=== PATIENT | male | born 1950 | race Caucasian/White ===

== ENCOUNTER → 2018-02-17 | Outpatient (CLI) | payer MEDICARE ==
[2018-02-17 09:36] LABS: ADD MAN DIFF? NO; BASO # 0.1 x10^3/uL (0.0-0.2); BASO % 1 % (0-3); EOS # 0.3 x10^3/uL (0.0-0.7); EOS % 3 % (0-3); HEMATOCRIT 48.8 % (39.0-53.0); HEMOGLOBIN 17.2 g/dL (13.0-17.5); LYMPH # 1.5 x10^3/uL (1.0-4.8); LYMPH % 16 % (24-48); MEAN CORPUSCULAR HEMOGLOBIN 33 pg (25-35); MEAN CORPUSCULAR HGB CONC 35 g/dL (31-37); MEAN CORPUSCULAR VOLUME 94 fL (79-100); MONO # 0.8 x10^3/uL (0.0-1.1); MONO % 9 % (0-9); NEUT # 6.8 x10^3uL (1.8-7.7); NEUT % 72 % (31-73); PLATELET COUNT 107 x10^3/uL (140-400); RED BLOOD COUNT 5.21 x10^6/uL (4.30-5.70); WHITE BLOOD COUNT 9.4 x10^3/uL (4.0-11.0)
[2018-02-17 09:43] LABS: ALBUMIN 4.1 g/dL (3.4-5.0); ANION GAP 6 (6-14); BLOOD UREA NITROGEN 13 mg/dL (8-26); CALCIUM 9.4 mg/dL (8.5-10.1); CARBON DIOXIDE 31 mmol/L (21-32); CHLORIDE 103 mmol/L (98-107); GLUCOSE 104 mg/dL (70-99); POTASSIUM 4.5 mmol/L (3.5-5.1); SODIUM 140 mmol/L (136-145)
[2018-02-17 09:47] LABS: PARTIAL THROMBOPLASTIN TIME 26 SEC (24-38); PROTHROMBIN TIME PATIENT 12.6 SEC (11.7-14.0)
== END | disposition home or self-care (01) ==
LOC: SURGPAT 08:59
DX: Z01.818 Encounter for other preprocedural examination (principal); K40.20 Bilateral inguinal hernia, without obstruction or gangrene, not specified as recurrent; R79.1 Abnormal coagulation profile
CPT/HCPCS: 36415; 80048; 82040; 85025; 85610; 85730

== ENCOUNTER 2018-02-21 06:34 | Day surgery (SDC) | payer MEDICARE ==
[2018-02-21] MEDS ORDERED: PROCHLORPERAZINE 10 MG/2 ML VIAL. IV (07:00)
[2018-02-21] MEDS ORDERED: ONDANSETRON PF 4 MG/2 ML VIAL. IV (07:00)
[2018-02-21] MEDS ORDERED: LIDOCAINE 1% PF 2 ML VIAL. ID (07:00)
[2018-02-21] MEDS ORDERED: fentaNYL PF VIAL 100 MCG/2 ML VIAL IV (07:00)
[2018-02-21] MEDS ORDERED: MORPHINE SULFATE 4 MG/ML DISP.SYRIN. IV (07:00)
[2018-02-21] MEDS: IV RINGERS,LACTATED 1000ML 1,000 ML IV (07:06)
[2018-02-21] MEDS ORDERED: ROCURONIUM 50 MG/5 ML VIAL. (07:45)
[2018-02-21] MEDS ORDERED: fentaNYL PF VIAL 100 MCG/2 ML VIAL ×2 (07:46→08:15)
[2018-02-21] MEDS ORDERED: DEXAMETHASONE SOD PHOS 20 MG/5 ML VIAL. (08:13)
[2018-02-21] MEDS ORDERED: LIDOCAINE 2% PF Vial for OR 5 ML VIAL. (08:13)
[2018-02-21] MEDS ORDERED: PROPOFOL 20 ML IV (08:13)
[2018-02-21] MEDS ORDERED: ONDANSETRON PF 4 MG/2 ML VIAL. (08:14)
[2018-02-21] MEDS: BUPIVACAINE-EPI 0.25%-1:200000 50 ML VIAL. (08:28)
[2018-02-21] MEDS ORDERED: NEOSTIGMINE METHYLSULFATE 5 MG/5 ML SYRINGE. (08:42)
[2018-02-21] MEDS ORDERED: GLYCOPYRROLATE 1 MG/5 ML VIAL. (08:42)
[2018-02-21] MEDS: fentaNYL PF VIAL 100 MCG/2 ML VIAL IV ×2 (10:15→10:24)
[2018-02-21] MEDS: HYDROcodone/APAP 5/325MG 1 TAB TABLET PO (10:25)
== END 2018-02-21 11:31 | disposition home or self-care (01) ==
LOC: SURG 06:34
DX: K40.20 Bilateral inguinal hernia, without obstruction or gangrene, not specified as recurrent (principal); C44.629 Squamous cell carcinoma of skin of left upper limb, including shoulder; Z79.899 Other long term (current) drug therapy; Z87.19 Personal history of other diseases of the digestive system; Z98.890 Other specified postprocedural states; Z90.49 Acquired absence of other specified parts of digestive tract; Z83.3 Family history of diabetes mellitus; F17.210 Nicotine dependence, cigarettes, uncomplicated; Z88.8 Allergy status to other drugs, medicaments and biological substances; E78.00 Pure hypercholesterolemia, unspecified; J44.9 Chronic obstructive pulmonary disease, unspecified; Z86.010 Personal history of colon polyps; E66.9 Obesity, unspecified; Z68.29 Body mass index [BMI] 29.0-29.9, adult; K21.9 Gastro-esophageal reflux disease without esophagitis; Z96.651 Presence of right artificial knee joint; Z72.89 Other problems related to lifestyle; Z85.828 Personal history of other malignant neoplasm of skin
CPT/HCPCS: 11601; 88304; 88305; A7015; C1781; J0690; J1100; J2405; J2704; J2710; J3010; J3490; J7120

== ENCOUNTER → 2018-11-15 | Outpatient (CLI) | payer MEDICARE ==
[2018-02-21 11:20] VITALS: BP 157/89
[~2018-11-15] MED LIST: CONTRAST GIVEN. MC PRN; HYDR-2761 PO; HYDR-2769 PO; IOHEXOL 240 MG/ML 50ML VIAL. PO ONE; IOHEXOL 300 MG/ML 100ML VIAL. IV ONE; NAPR220C4 PO; TRIA0.25 PO; VARE1TAB21 PO
[2018-11-15 09:03] LABS: CALCIUM 9.4 mg/dL (8.5-10.1); CREATININE 0.9 mg/dL (0.7-1.3); GFR 84.7; POTASSIUM 4.2 mmol/L (3.5-5.1)
--- NOTE | 2018-11-15 10:37 | RAD ---
PQRS Compliance statement: One or more of the following individualized dose reduction techniques were utilized for this examination: 1. Automated exposure control. 2. Adjustment of the mA and/or kV according to patient size. 3. Use of iterative reconstruction technique. Indication:LEFT INGUINAL PAIN X 1 MONTH. OSTOMY
IV OMNI 300 75 MLS AND PO OMNI 240 30 MLS
PREVIOUS TECHNIQUE: CT abdomen and pelvis with IV contrast with multiplanar reformats. COMPARISON: Previous exam from 01/21/2015 FINDINGS: Heart is normal in size. No pericardial or pleural effusion. Clear lung bases. Scattered calcified granulomas in the liver and spleen. 1.7 x 1.6 cm well-circumscribed low attenuating lesion is seen in the superior aspect of the spleen. No radiopaque gallstones. Pancreas is within normal limits. No adrenal nodularity. Simple appearing cyst is seen in the upper pole of the right kidney. No nephrolithiasis or hydronephrosis. Focal ectasia of the infrarenal abdominal aorta measuring 2.6 cm with diffuse atherosclerotic disease. No free pelvic fluid or ascites. No enlarged inguinal, pelvic or retroperitoneal adenopathy. No bowel obstruction. No inguinal hernia. No pneumoperitoneum. No suspicious bony lesion. IMPRESSION: 1. Solitary splenic lesion, indeterminate. Differential diagnoses includes cyst, hemorrhage,, hemangioma or less likely metastasis. Short-term follow-up with CT abdomen with IV contrast in 3 months recommended. Electronically signed by: Alonzo Kramer DO (11/15/2018 10:33 AM) [id number]
== END | disposition home or self-care (01) ==
LOC: CT 13:13
PROVIDERS: ATTEND Surgery
DX: I77.811 Abdominal aortic ectasia (principal); K75.3 Granulomatous hepatitis, not elsewhere classified; D73.89 Other diseases of spleen; I70.0 Atherosclerosis of aorta
CPT/HCPCS: 36415; 74177; 80048; Q9966; Q9967

== ENCOUNTER → 2019-03-02 | Outpatient (CLI) | payer MEDICARE ==
[2018-02-21 11:20] VITALS: BP 157/89
[~2019-03-02] MED LIST changes: -CONTRAST GIVEN. MC PRN; +DEXA4TAB63 PO; +GADOBUTROL 10 MMOL/10 ML VIAL IV ONE; -IOHEXOL 240 MG/ML 50ML VIAL. PO ONE; -IOHEXOL 300 MG/ML 100ML VIAL. IV ONE
--- NOTE | 2019-03-02 11:21 | KCIC ---
Clinical indications: Right arm weakness. Smoker. COPD.. Duplex sonography of the cervical portion of both carotid arteries was performed including color flow imaging and spectral waveform analysis with flow velocity measurement and teague scale evaluation. Right side: Peak systolic flow velocity of the CCA is 69 cm/sec. Peak systolic flow velocity of the ICA is 79 cm/sec. Thus, the ICA/CCA ratio is 1.1. Peak end diastolic flow velocity of the ICA is 26 cm/sec. The peak systolic velocity of the ECA is 122 cm/sec. Left side: Peak systolic flow velocity of the CCA is 61 cm/sec. Peak systolic flow velocity of the ICA is 64 cm/sec. Thus, the ICA/CCA ratio is 1.04. Peak end diastolic flow velocity of the ICA is 25 cm/sec. Peak systolic flow velocity of the ECA is 62 cm/sec. No significant plaque is identified within the right carotid bifurcation. There is minimal plaque formation within the left carotid bulb. No significant plaque formation is identified within the left ICA.. Antegrade vertebral flow is seen bilaterally. The measurements were made using the NASCET criteria. Impression:No significant plaque formation is identified within the cervical portion of either carotid artery. Electronically signed by: Tobin Saucedo MD (03/02/2019 11:18 AM) [facility]
--- NOTE | 2019-03-02 13:46 | KCIC ---
CT study chest without contrast Clinical indications: Weight loss. Lung nodule seen previously. Follow-up study. Smoker. TECHNIQUE: Noncontrast helical CT scanning of the chest was performed. PQRS compliance Statement One or more of the following individualized dose reduction techniques were utilized for this study: 1. Automated exposure control 2. Adjustment of the mA and/or kV according to patient size 3. Use of iterative reconstruction technique COMPARISON: May 19, 2016. FINDINGS: No enlarging thoracic lymphadenopathy is seen. No focal aneurysmal dilatation of the thoracic aorta is seen. Heart size is normal and no pericardial effusion is seen. There is mild calcified atheromatous disease of the coronary arteries. The previously seen left lower lobe lung nodule is again evident and is calcified consistent with a granuloma. It measures about 4 mm. There is a new finding of a peripheral posterior lateral lung mass within the inferior segment of the lingula which extends to the pleura. This measures 33 mm in greatest AP or transverse dimension. On image 52 and series 2, there is a small pleural-based lung nodule within the lateral aspect right lower lobe measuring 4 mm. There is a fissural nodule within the anterior aspect of the minor fissure on the right side which measures 11 mm in size seen on image 42 and series 2 which most likely represents an intrafissural lymph node. This was seen previously and hasn't changed significantly. There is chronic thickening of this fissure. No pleural effusion or pneumothorax is seen. Bilateral emphysema is seen with an upper lung zone predominance. The proximal bronchial tree is patent otherwise. No adrenal mass is seen. No lytic process is seen. IMPRESSION: New lung mass of the inferior segment of the lingula which could represent malignancy. Stable left lower lobe lung nodule seen previously consistent with a small granuloma. However, there is a new indeterminate small lung nodule within the lateral aspect of the right lower lobe. Stable fissural lymph node on the right side. Emphysema. Stable mediastinal lymph nodes. Electronically signed by: Tobin Saucedo MD (03/02/2019 1:43 PM) [place] [id number]
--- NOTE | 2019-03-02 14:29 | KCIC ---
MRI of the Brain without and with Contrast 03/02/2019 Clinical History: Unsteady gait for 3 to 4 weeks. Slurred speech. Technique: Unenhanced T1-weighted sagittal and axial and FLAIR, T2-weighted, gradient echo and diffusion-weighted axial images of the brain were obtained. After the intravenous administration of 9 cc of Gadavist, enhanced T1-weighted axial, sagittal and coronal images of the brain were obtained. Findings: No previous studies are available for comparison. There is generalized parenchymal atrophy. Patchy, confluent and multiple small focal areas of abnormally increased signal intensity are seen within the periventricular and subcortical white matter of both cerebral hemispheres on the FLAIR and T2-weighted images consistent with areas of small vessel ischemic disease. An enhancing mass is seen involving the superior right cerebellar hemisphere which measures 3.5 x 2.7 x 2.4 cm in AP, transverse and craniocaudal dimensions. An enhancing mass is seen involving the left frontal lobe which measures 0.9 x 0.8 x 0.8 cm in craniocaudal, AP and transverse dimensions. These masses are consistent with brain metastasis. There is surrounding edema and associated mass effect. The cerebellar mass deforms the superior aspect of the fourth ventricle. No obstructive hydrocephalus is definitely seen. No midline shift is noted. No additional metastasis is seen. There is no MRI evidence of acute ischemia/infarction. No extra-axial fluid collection is seen. Mild mucosal thickening is seen scattered throughout the paranasal sinuses. There are small bilateral mastoid effusions. IMPRESSION: Metastasis are seen involving the right cerebellum and left frontal lobe which measure 3.5 and 0.9 cm in size. There is surrounding edema and associated mass effect without evidence of midline shift or obstructive hydrocephalus. No additional metastasis is seen. These findings were discussed with Abraham Marc's nurse. Electronically signed by: Oj Craig MD (03/02/2019 2:26 PM) [id number]
== END | disposition home or self-care (01) ==
LOC: KCIC US 09:22
PROVIDERS: ATTEND Physician Assistant Medical
DX: C79.31 Secondary malignant neoplasm of brain (principal); C44.629 Squamous cell carcinoma of skin of left upper limb, including shoulder; J43.9 Emphysema, unspecified; R91.1 Solitary pulmonary nodule; R27.8 Other lack of coordination; R47.81 Slurred speech; R09.89 Other specified symptoms and signs involving the circulatory and respiratory systems; F17.200 Nicotine dependence, unspecified, uncomplicated
CPT/HCPCS: 70553; 71250; 93880; A9585

== ENCOUNTER 2019-03-14 09:58 | Inpatient (IN) | payer MEDICARE ==
[~2019-03-14 09:58] MED LIST changes: -DEXA4TAB63 PO; -GADOBUTROL 10 MMOL/10 ML VIAL IV ONE
[2019-03-14 11:00] VITALS: BP 136/81
[2019-03-14] MEDS ORDERED: DEXAMETHASONE SOD PHOS 20 MG/5 ML VIAL. IV ONE (13:30)
[2019-03-14] MEDS ORDERED: IBUPROFEN 400 MG TABLET. PO PRN (13:30)
[2019-03-14 14:44] LABS: BASO % 1 % (0-3); EOS # 0.3 x10^3/uL (0.0-0.7); EOS % 4 % (0-3); HEMATOCRIT 48.1 % (39.0-53.0); HEMOGLOBIN 16.8 g/dL (13.0-17.5); LYMPH # 1.6 x10^3/uL (1.0-4.8); LYMPH % 21 % (24-48); MEAN CORPUSCULAR HEMOGLOBIN 33 pg (25-35); MEAN CORPUSCULAR HGB CONC 35 g/dL (31-37); MEAN CORPUSCULAR VOLUME 94 fL (79-100); MONO # 0.4 x10^3/uL (0.0-1.1); MONO % 6 % (0-9); NEUT # 5.2 x10^3uL (1.8-7.7); NEUT % 68 % (31-73); PLATELET COUNT 118 x10^3/uL (140-400); RED BLOOD COUNT 5.13 x10^6/uL (4.30-5.70); RED CELL DISTRIBUTION WIDTH 14.2 % (11.5-14.5); WHITE BLOOD COUNT 7.6 x10^3/uL (4.0-11.0)
[2019-03-14 14:52] LABS: PROTHROMBIN TIME PATIENT 12.7 SEC (11.7-14.0)
[2019-03-14 14:54] VITALS: BP 129/78
[2019-03-14 15:01] LABS: ALBUMIN 3.5 g/dL (3.4-5.0); ALBUMIN/GLOBULIN RATIO 0.9 (1.0-1.7); CALCIUM 9.4 mg/dL (8.5-10.1); CREATININE 0.9 mg/dL (0.7-1.3); GFR 84.4; POTASSIUM 3.4 mmol/L (3.5-5.1); TOTAL BILIRUBIN 0.4 mg/dL (0.2-1.0); TOTAL PROTEIN 7.4 g/dL (6.4-8.2)
[2019-03-14] MEDS: NICOTINE 21MG PATCH. TD SCH (16:42)
[2019-03-14] MEDS: HYDROcodone/APAP 5/325MG 1 TAB TABLET PO PRN ×2 (16:46→21:01)
--- NOTE | 2019-03-14 16:51 | PDOC ---
Provider Note Provider Note Patient seen and examined progressive dizziness and loss of coordination over the last 6 weeks MRI brain with Metastasis are seen involving the right cerebellum and left frontal lobe which measure 3.5 and 0.9 cm in size. There is surrounding edema and associated mass effect without evidence of midline shift or obstructive hydrocephalus. steroids ordered metastatic work up radiation oncology to see will follow CHAYITO TIRADO MD Mar 14, 2019 16:51
[2019-03-14] MEDS: IPRATRPIUM/ALBUTEROL 0.5/2.5MG 3 ML NEBU. NEB SCH ×2 (16:56→19:50)
[2019-03-14 19:00] VITALS: BP 141/75
--- NOTE | 2019-03-14 19:20 | HP ---
ADMIT DATE: 03/14/2019 CHIEF COMPLAINT: Weakness and ataxia due to brain lesions. HISTORY OF PRESENT ILLNESS: A 68-year-old white male, chronic long-term smoker, came to the office and was seen by Taj TANG regarding increasing weakness and cough. CT chest revealed a lingular lesion about 33 millimeters in transverse dimension, raising the question of primary lung cancer. MRI of the brain showed evidence of what appeared to be metastatic lesions in the right cerebellum and left frontal lobe, left cerebellum larger 3.5 cm. He was advised on 03/13/2019 to be admitted because of increasing ataxia and weakness and declined, but on 03/14/2019, decided to come to the hospital for further evaluation. MEDICATIONS: Include Halcion, which he gets from [place]; hydrocodone for pain. PAST SURGICAL HISTORY: He has had colon resection for diverticulitis with colostomy in 2011. He had right knee replacement and hernia repair as well. ALLERGIES: No allergies are known. SOCIAL HISTORY: Longtime smoker, continues to smoke, , nondrinker. FAMILY HISTORY: Unremarkable. REVIEW OF SYSTEMS: He has lost perhaps 10 pounds in the last month. He has had no other noticeable symptoms. Denies hemoptysis, chest pain or other symptoms and not really much headache. PHYSICAL EXAMINATION: ENT: All within normal limits. NECK: No masses, nodes or bruits. LUNGS: Clear. CARDIOVASCULAR: Regular rate. No irregular beat or murmur. ABDOMEN: Soft, benign and nontender. NEUROLOGIC: He has definite right-sided cerebellar ataxia with poor [id number], poor gait and no obvious tremor. Cranial nerves appear to be intact. Motor strength in the arms and legs appear to be intact. Sensation and reflexes are okay too. Mental status is intact as well. EXTREMITIES: Unremarkable. ASSESSMENT: He likely has a primary lung cancer in the left lung and what could well be metastatic lesions in the right cerebellum and the left frontal lobe and the cerebellar lesion is symptomatic. Underlying chronic tobacco abuse and chronic obstructive pulmonary disease is a large main other problems as well as some degree of alcohol use. PLAN: As ordered. LEOBARDO HORTA MD DR: THANH/ulysses JOB#: [id number] / [id number]
[2019-03-14] MEDS: DEXAMETHASONE SOD PHOS 4 MG/ML VIAL IV SCH (19:24)
[2019-03-14 23:00] VITALS: BP 116/62
[2019-03-15] VITALS (23 sets, daily range): BP systolic 106–128; BP diastolic 58–73
[2019-03-15] MEDS: DEXAMETHASONE SOD PHOS 4 MG/ML VIAL IV SCH ×5 (00:09→23:51)
[2019-03-15] MEDS: HYDROcodone/APAP 5/325MG 1 TAB TABLET PO PRN ×4 (02:42→23:50)
[2019-03-15] MEDS: NICOTINE 21MG PATCH. TD SCH (07:39)
[2019-03-15] MEDS: IPRATRPIUM/ALBUTEROL 0.5/2.5MG 3 ML NEBU. NEB SCH ×4 (08:09→20:38)
--- NOTE | 2019-03-15 08:35 | PDOC ---
Provider Note Provider Note vss, no temp- decadron on board, will need ? bronch vs ct biopsy for dx of lingular mass- rad onc consult in advance of dx also- here for iv decadron and urgent need for diagnostic workup, at risk for cerebellar herniation re mass, NEEDS TO BE IN HOSPITAL until dx is made/plan in place LEOBARDO HORTA MD Mar 15, 2019 08:35
[2019-03-15] MEDS: PANTOPRAZOLE 40 MG TABLET.DR. PO SCH (09:30)
--- NOTE | 2019-03-15 11:11 | NUR ---
SW following pt for anticipated dc needs. Chart reviewed. Pt lives at home alone and no SW needs noted at this time. Will continue to eval needs.
[2019-03-15] MEDS ORDERED: LIDOCAINE WITH 8.4% SOD BICARB 3 ML DISP.SYRIN. ONE (12:43)
[2019-03-15] MEDS ORDERED: MIDAZOLAM HCL/PF 2 MG/2 ML VIAL. ONE ×2 (13:08→13:37)
[2019-03-15] MEDS ORDERED: fentaNYL PF VIAL 100 MCG/2 ML VIAL ONE ×2 (13:08→13:38)
--- NOTE | 2019-03-15 14:10 | PDOC ---
Provider Note Provider Note patient in IR for Biopsy at 1325 Dr. 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
--- NOTE | 2019-03-15 14:13 | PDOC ---
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 Now on dexamethasone with some improvement. He has just undergone CT guided lung bx this afternoon. 2 months of decline of right hand and arm use. Decline in penmanship and hammer swing. Gait instability to the point of using a walker Now also having slurred speech and decrease of visual tracking over last month. No AMIN,N or V. Slurred speech better with institution of dexamethasone. 18 to 20 pound weight loss diminished appetite and energy level. No respiratory sxs. PE Slurred speech but intelligible. Diminished coordination on right by finger to nose, ataxic gait. MRI brain 03/02/2019 3.5 x 2.7 x 2.3 cm enhancing medial deep right cerebellar mass with edema and mass effect and distortion of 4th vent. No lateral vent enlargement .9 cm left frontal enhancing mass. CT chest 03/02/2019. 3.3 cm lateral NIA mass small Rt nodule also new vs previous imaging. Mediastinum, liver and adrenal glands all ok. CBC Hb 16.8 WBC 7.6 Plat 118K Chem Ca 9.[address] IV bronchogenic carcinoma. Await lung bx outcome. Symptoms modestly better with DXM. Discussed with Dr Guzman patient has a high risk lesion for resection of the symptomatic cerebellar lesion and has no hydrocephalus or impending risk for hydrocephalus as 4th vent is patent. He recommends radiation as first treatment. Patient is not ideal for stereotactic treatment as first therapy as this is a large lesion with significant peritumor edema. Stereotactic treatment upfront may transiently increase edema and mass effect. Therefore, plan on conventional fractionated treatment then reassess for response and consider a stereotactic boost. Discussed in detail with patient and son. Simulated for treatment today with first treatment tomorrow. If stable neurologically tomorrow it would be ok to dc for ongoing treatment and ongoing steroid (DXM) coverage. GLENN PARISH MD Mar 15, 2019 14:13
[2019-03-15] MEDS ORDERED: fentaNYL PF VIAL 100 MCG/2 ML VIAL IV ONE (14:15)
[2019-03-15] MEDS ORDERED: MIDAZOLAM HCL/PF 2 MG/2 ML VIAL. IV ONE (14:15)
[2019-03-15] MEDS ORDERED: LIDOCAINE WITH 8.4% SOD BICARB 3 ML DISP.SYRIN. IJ ONE (14:15)
--- NOTE | 2019-03-15 16:38 | RAD ---
Procedure: CT-guided left lung biopsy Clinical Indication: 68-year-old male with left lung mass Sedation: Conscious sedation was administered with a total intraprocedural qyqh-sc-mllv time of 52 minutes. The patient was monitored by a qualified independent observer throughout the time of sedation. Please refer to the medical record for exact doses of medications utilized to achieve moderate sedation. Antibiotics: None Contrast: None Sterility: The procedure was performed in its entirety using appropriate elements of sterile technique. Consent: The procedure was explained in its entirety to the patient or the patients designated traveling representative by a member of the treatment team, including a discussion of the risks, benefits and commonly accepted alternatives to the procedure, as well as the expected consequences of no therapy whatsoever. Discussion of the risks included, but was not limited to, those that are most frequent and those that are rare but possibly severe or life-threatening, as well as the possibility of unforeseen complications. Technique and Findings: Following informed consent, the patient was prepped and draped in usual sterile fashion. Preliminary CT scan of the area of interest was performed. 1% lidocaine was used to achieve local anesthesia over the area of interest. A small dermatotomy was made. Under periodic CT surveillance, a 19-gauge needle guide was advanced towards the target lesion and 6 separate 20-gauge core biopsy specimens were obtained and preserved in formalin. A blood patch was applied as the needle guide was removed and hemostasis was achieved with manual compression. Complications: No immediate Impression: 1. CT-guided left lung biopsy as described. PQRS Compliance Statement: One or more of the following individualized dose reduction techniques were utilized for this examination: 1. Automated exposure control 2. Adjustment of the mA and/or kV according to patient size 3. Use of iterative reconstruction technique
--- NOTE | 2019-03-15 16:39 | PDOC ---
MODERATE SEDATION ASSESSMENT RISKS/ALTERNATIVES Risks/Alternatives Risks and alternatives of this type of sedation and procedure discussed with: RISK/ALTERNATIVES: Patient H & P ON CHART H & P H & P on chart and reviewed for co-morbid conditions and appropriate labs. H&P ON CHART: Yes STATUS PREG STATUS ASSESSED: Yes MEDS/ALLERGIES REVIEWED Meds/Allergies Reviewed Medications and Allergies including time and route of recently administered narcotics and sedatives. MEDS/ALLERGIES REVIEWED: Yes ASA RATING ASA RATING: II AIRWAY ASSESSMENT Airway Assessment Airway patency, oral function limitations, presence of caps, crowns, dentures, partials, and ability to extend neck assessed. AIRWAY ASSESSMENT: Yes MALLAMPATI SCORE MALLAMPATI SCORE: II PRE-SEDATION ASSESSMENT PRE-SEDATION ASSESSMENT: Yes AMY MONTEMAYOR MD Mar 15, 2019 16:39
--- NOTE | 2019-03-15 16:40 | PDOC ---
BRIEF OPERATIVE NOTE Pre-Op Diagnosis left lung mass Post-Op Diagnosis same Procedure Performed CT Lung Biopsy Surgeon Audrey Anesthesia Type: Conscious Sedation Specimens Obtained 6 x 20g cores Findings CT left lung biopsy Complications No immediate AMY MONTEMAYOR MD Mar 15, 2019 16:40
--- NOTE | 2019-03-15 17:00 | PDOC ---
PULMONARY PROGRESS NOTES Vitals Vital Signs Date Time Temp Pulse Resp B/P (MAP) Pulse Ox O2 Delivery O2 Flow Rate FiO2 03/15/19 16:27 Nasal Cannula 2.0 03/15/19 15:00 97.8 86 18 126/68 (87) 96 97.8 Labs Laboratory Tests Test 03/14/19 14:35 White Blood Count 7.6 x10^3/uL (4.0-11.0) Red Blood Count 5.13 x10^6/uL (4.30-5.70) Hemoglobin 16.8 g/dL (13.0-17.5) Hematocrit 48.1 % (39.0-53.0) Mean Corpuscular Volume 94 fL (79-100) Mean Corpuscular Hemoglobin 33 pg (25-35) Mean Corpuscular Hemoglobin Concent 35 g/dL (31-37) Red Cell Distribution Width 14.2 % (11.5-14.5) Platelet Count 118 x10^3/uL (140-400) Neutrophils (%) (Auto) 68 % (31-73) Lymphocytes (%) (Auto) 21 % (24-48) Monocytes (%) (Auto) 6 % (0-9) Eosinophils (%) (Auto) 4 % (0-3) Basophils (%) (Auto) 1 % (0-3) Neutrophils # (Auto) 5.2 x10^3uL (1.8-7.7) Lymphocytes # (Auto) 1.6 x10^3/uL (1.0-4.8) Monocytes # (Auto) 0.4 x10^3/uL (0.0-1.1) Eosinophils # (Auto) 0.3 x10^3/uL (0.0-0.7) Basophils # (Auto) 0.0 x10^3/uL (0.0-0.2) Prothrombin Time 12.7 SEC (11.7-14.0) Prothromb Time International Ratio 1.0 (0.8-1.1) Sodium Level 142 mmol/L (136-145) Potassium Level 3.4 mmol/L (3.5-5.1) Chloride Level 104 mmol/L (98-107) Carbon Dioxide Level 26 mmol/L (21-32) Anion Gap 12 (6-14) Blood Urea Nitrogen 11 mg/dL (8-26) Creatinine 0.9 mg/dL (0.7-1.3) Estimated GFR (Cockcroft-Gault) 84.4 BUN/Creatinine Ratio 12 (6-20) Glucose Level 126 mg/dL (70-99) Calcium Level 9.4 mg/dL (8.5-10.1) Total Bilirubin 0.4 mg/dL (0.2-1.0) Aspartate Amino Transf (AST/SGOT) 21 U/L (15-37) Alanine Aminotransferase (ALT/SGPT) 26 U/L (16-63) Alkaline Phosphatase 99 U/L (46-116) Total Protein 7.4 g/dL (6.4-8.2) Albumin 3.5 g/dL (3.4-5.0) Albumin/Globulin Ratio 0.9 (1.0-1.7) Medications Active Scripts Medications Dose Route/Sig Max Daily Dose Days Date Category Hydrocodone-Apap 5-325 (Hydrocodone Bit/Acetaminophen) 1 Each Tablet 1 Tab PO PRN Q6HRS PRN 04/14/16 Reported Halcion (Triazolam) 0.25 Mg Tablet 2 Tab PO QHS 01/21/15 Reported Aleve (Naproxen Sodium) 220 Mg Capsule 440 Mg PO DAILY 01/21/15 Reported Impression . NOTE DICTATED WILL WAIT FOR BX RESULTS THANKS CHRIS MANNING MD Mar 15, 2019 17:00
--- NOTE | 2019-03-15 17:13 | RAD ---
EXAM: Chest, single view. HISTORY: Lung biopsy. COMPARISON: CT dated 03/02/2019. FINDINGS: A frontal view of the chest is obtained. There is no convincing pneumothorax status post left lung biopsy. There is a 3.9 cm mass within the lingula. There is emphysema with biapical and basilar pleural parenchymal scarring. There are superimposed left basilar atelectasis. The heart is normal in size. IMPRESSION: 1. No evidence of a pneumothorax status post left lung biopsy. 2. 3.9 cm left lung mass. This is better characterized on the CT dated 03/02/2019. 3. Emphysema. Electronically signed by: Jaquelin Hamilton MD (03/15/2019 5:10 PM) [facility]
[2019-03-15] MEDS: POLYETHYLENE GLYCOL 3350 17 GM PACKET. PO SCH (18:30)
[2019-03-16 02:50] VITALS: BP 112/58
--- NOTE | 2019-03-16 05:30 | CONS ---
DATE OF CONSULTATION: 03/15/2019 REFERRING PHYSICIAN: Omero Guzman MD. 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 He has symptomatic brain metastases at diagnosis, chiefly in the right cerebellar region causing cerebellar symptoms of ataxia, coordination loss and slurred speech. He is now on dexamethasone with some improvement. He has just undergone CT-guided biopsy of the left lung mass earlier today. We were asked to see him regarding the role of palliative radiation therapy in his care. ICD 10 C34.12 C79.31 HISTORY OF PRESENT ILLNESS: The patient is a 68-year-old gentleman who has noted a 2-month history of diminished function of his right arm with decreased penmanship and inability to swing a hammer accurately. Now over the last 3-4 weeks, he has had slurred speech, diminished balance and difficulty with ambulation, necessitating the use of a walker. He has had 2 nontraumatic falls. He has also noted difficulty with tracking things visually across the horizon. He has had no headaches, nausea or vomiting. No seizures. He also notes 18-20 pound weight loss over the last several months with diminished appetite and energy level. He is breathing well with no significant shortness of breath, cough or hemoptysis. He does note generalized arthritic pain everywhere with no focal pain elsewhere. He underwent MRI scan of the brain on 03/02/2019. This revealed a 3.5 x 2.7 x 2.3 cm inhomogeneously enhancing medial right cerebellar mass extending to the cerebellar peduncle with surrounding edema and mass effect. It distorted the fourth ventricle to the left with preservation of the patency of the fourth ventricle. Lateral ventricles were normal in size. No evidence for hydrocephalus. There was a 0.9 cm faintly enhancing mass in the left frontal lobe, also consistent with metastatic disease. CT scan of the chest also on 03/02/2019 revealed at 3.3 cm lobulated mass in the lateral aspect of the left upper lobe. There was a stable left lower lobe nodule and a new 11 mm nodule in the right lung. No mediastinal or hilar adenopathy. Liver and adrenal glands were clear on my review, findings consistent with primary bronchogenic carcinoma on my review. Since admission to the hospital, he has been on dexamethasone with some improvement of his slurred speech. PAST MEDICAL HISTORY: Remarkable for two right total knee arthroplasties, second of which still resulted in a loose prosthesis in the joint space. He has had diverticulitis in the past resected followed by transient use of colostomy and then takedown. He has had skin cancer resected from his left chest. MEDICATIONS: Prior to admission included Halcion and hydrocodone. ALLERGIES: bupropion, chlorhexidine, venlafaxine FAMILY HISTORY: Sister is receiving chemotherapy now for some form of cancer. SOCIAL HISTORY: many years ago, lives alone independently. 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 He has another son in [place], [place] and daughter in [place], [place]. He has limited contact with them. He has smoked 1.5-2 packs a day, age 17 to age 68, continues to smoke. Drinks 1-3 [place] today, has enjoyed camping in the past. PHYSICAL EXAMINATION: GENERAL: Revealed a pleasant gentleman, in no acute distress. HEENT: Revealed fair dentition. LYMPH NODES: He had no palpable cervical or supraclavicular adenopathy. LUNGS: Clear to auscultation. HEART: Regular. ABDOMEN: Unremarkable. EXTREMITIES: Reveal no clubbing, cyanosis or edema. NEUROLOGIC: He had intelligible, but somewhat slurred speech. He was oriented and appropriate. Cranial nerves 2-12 are intact. No nystagmus. Coordination was impaired by [id number] and rapid alternating movement of the right hand. Strength, reflexes, sensation of all extremities were intact and symmetric. Gait was somewhat ataxic. He used a walker preferentially. LABORATORY STUDIES: Hemoglobin 16.8, white count 7600, platelet count 118,000. Chemistry panel: Sodium 142, potassium 3.4, creatinine 0.9, glucose 126, calcium 9.4. ASSESSMENT AND PLAN: In summary, my impression is that of stage 4 (T2N0M1) bronchogenic carcinoma of the left upper lobe with symptomatic brain metastasis, chiefly in the region of the bulky lesion in the right cerebellum. I discussed with Dr. Guzman the potential for surgical resection of this. He felt the lesion was deep and close to the peduncle making successful surgery with good neurologic outcome risky. He felt that in light of the absence of hydrocephalus and the location of the lesion, he recommended radiation as the first treatment, reserving surgery in the event of progression in the future. I discussed this in detail with the patient. I also reviewed with him a stereotactic treatment upfront as the significant risk of adding to peritumor edema and mass effect due to its large size and presence of edema and mass effect seen thus far. As a result, I do recommend conventional fractionated radiation therapy initially over 10-day course, followed by reassessment and then consider sterotactic boost. He has just undergone lung biopsy to confirm this clinical diagnosis and ascertain histologic cell type. Once diagnosis is secured, he should have consultation with Dr. Antonio or Dr. Jean to discuss the role of palliative systemic management in his care. We will initiate simulation on 03/15/2019 with treatment to begin on 03/16/2019. I discussed the treatment, its goals and toxicities with the patient and his son in detail. Thank you again for allowing us to participate in his evaluation. GLENN PARISH MD DR: ROXANA/ulysses JOB#: [id number] / [id number] GAVI Chand MD, DAVID MD RAJA, VINAY MD MTDD
[2019-03-16] MEDS: DEXAMETHASONE SOD PHOS 4 MG/ML VIAL IV SCH (05:50)
[2019-03-16] MEDS: HYDROcodone/APAP 5/325MG 1 TAB TABLET PO PRN ×2 (06:37→13:54)
[2019-03-16] MEDS: PANTOPRAZOLE 40 MG TABLET.DR. PO SCH (06:37)
[2019-03-16 07:00] VITALS: BP 118/72
[2019-03-16] MEDS: IPRATRPIUM/ALBUTEROL 0.5/2.5MG 3 ML NEBU. NEB SCH ×2 (08:00→12:51)
[2019-03-16] MEDS: POLYETHYLENE GLYCOL 3350 17 GM PACKET. PO SCH (08:05)
[2019-03-16] MEDS: NICOTINE 21MG PATCH. TD SCH (08:05)
--- NOTE | 2019-03-16 08:25 | PDOC ---
Provider Note Provider Note ct biopsy done, rad tx to start pending cell type- po decadron now, R side ataxia a little better- will have oncology see him in advance of discharge, defer decadron dose/duration to LEOBARDO Camejo MD Mar 16, 2019 08:25
--- NOTE | 2019-03-16 09:09 | PDOC ---
PULMONARY PROGRESS NOTES Subjective PT NOT MORE SOA Vitals Vital Signs Date Time Temp Pulse Resp B/P (MAP) Pulse Ox O2 Delivery O2 Flow Rate FiO2 03/16/19 07:00 97.7 68 18 118/72 (87) 95 Nasal Cannula 1.0 97.7 ROS: No Nausea, No Chest Pain, No Abdominal Pain, No Increase Cough General: Alert Lungs: Clear Cardiovascular: S1, S2 Abdomen: Soft Neuro Exam: Alert Extremities: No Edema Skin: Warm Labs Laboratory Tests Test 03/14/19 14:35 White Blood Count 7.6 x10^3/uL (4.0-11.0) Red Blood Count 5.13 x10^6/uL (4.30-5.70) Hemoglobin 16.8 g/dL (13.0-17.5) Hematocrit 48.1 % (39.0-53.0) Mean Corpuscular Volume 94 fL (79-100) Mean Corpuscular Hemoglobin 33 pg (25-35) Mean Corpuscular Hemoglobin Concent 35 g/dL (31-37) Red Cell Distribution Width 14.2 % (11.5-14.5) Platelet Count 118 x10^3/uL (140-400) Neutrophils (%) (Auto) 68 % (31-73) Lymphocytes (%) (Auto) 21 % (24-48) Monocytes (%) (Auto) 6 % (0-9) Eosinophils (%) (Auto) 4 % (0-3) Basophils (%) (Auto) 1 % (0-3) Neutrophils # (Auto) 5.2 x10^3uL (1.8-7.7) Lymphocytes # (Auto) 1.6 x10^3/uL (1.0-4.8) Monocytes # (Auto) 0.4 x10^3/uL (0.0-1.1) Eosinophils # (Auto) 0.3 x10^3/uL (0.0-0.7) Basophils # (Auto) 0.0 x10^3/uL (0.0-0.2) Prothrombin Time 12.7 SEC (11.7-14.0) Prothromb Time International Ratio 1.0 (0.8-1.1) Sodium Level 142 mmol/L (136-145) Potassium Level 3.4 mmol/L (3.5-5.1) Chloride Level 104 mmol/L (98-107) Carbon Dioxide Level 26 mmol/L (21-32) Anion Gap 12 (6-14) Blood Urea Nitrogen 11 mg/dL (8-26) Creatinine 0.9 mg/dL (0.7-1.3) Estimated GFR (Cockcroft-Gault) 84.4 BUN/Creatinine Ratio 12 (6-20) Glucose Level 126 mg/dL (70-99) Calcium Level 9.4 mg/dL (8.5-10.1) Total Bilirubin 0.4 mg/dL (0.2-1.0) Aspartate Amino Transf (AST/SGOT) 21 U/L (15-37) Alanine Aminotransferase (ALT/SGPT) 26 U/L (16-63) Alkaline Phosphatase 99 U/L (46-116) Total Protein 7.4 g/dL (6.4-8.2) Albumin 3.5 g/dL (3.4-5.0) Albumin/Globulin Ratio 0.9 (1.0-1.7) Medications Active Scripts Medications Dose Route/Sig Max Daily Dose Days Date Category Hydrocodone-Apap 5-325 (Hydrocodone Bit/Acetaminophen) 1 Each Tablet 1 Tab PO PRN Q6HRS PRN 04/14/16 Reported Halcion (Triazolam) 0.25 Mg Tablet 2 Tab PO QHS 01/21/15 Reported Aleve (Naproxen Sodium) 220 Mg Capsule 440 Mg PO DAILY 01/21/15 Reported Impression . IMPRESSION: 1. Left upper lobe mass. 2. Clinical stage 4 lung cancer. 3. MRI brain revealing metastatic disease to the cerebellar region. 4. Chronic obstructive pulmonary disease, suspect FEV1 approximately 1 liter. 5. Tobacco dependence. Plan . REVIEWED CT CHEST, DOUBT BRONCHOSCOPY WOULD NOT GIVE US A DX 1. We will await for biopsy results; 2. The patient has been seen by Dr. Good. He will undergo radiation to the cerebellar region tomorrow. 3. Continue oxygen supplementation. 4. Nebulized treatments. CHRIS MANNING MD Mar 16, 2019 09:09
--- NOTE | 2019-03-16 09:57 | RAD ---
Portable chest x-ray compared to similar study dated March 15, 2019 for status post left lung biopsy. FINDINGS: Peripheral left lower lobe lung nodule is redemonstrated. Mild coarse interstitial changes are stable. No new lung parenchymal abnormalities. No pneumothorax or pleural effusion. Heart size within normal limits. IMPRESSION: 1. Stable chest x-ray with left lung nodule unchanged. Electronically signed by: Herrera Ventuar MD (03/16/2019 9:54 AM) [id number]
--- NOTE | 2019-03-16 10:47 | PDOC ---
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 Now on dexamethasone with some improvement. He has just undergone CT guided lung bx this afternoon. Bx well tolerated yesterday outside of some anxiety. 2 months of decline of right hand and arm use. Decline in penmanship and hammer swing. Gait instability to the point of using a walker Now also having slurred speech and decrease of visual tracking over last month. No AMIN,N or V. Slurred speech better with institution of dexamethasone. Notes some improvement in visual tracking. No change in speech. PE Slurred speech but intelligible. No change from 03/15/2019 MRI brain 03/02/2019 3.5 x 2.7 x 2.3 cm enhancing medial deep right cerebellar mass with edema and mass effect and distortion of 4th vent. No lateral vent enlargement .9 cm left frontal enhancing mass. CT chest 03/02/2019. 3.3 cm lateral NIA mass small Rt nodule also new vs previous imaging. Mediastinum, liver and adrenal glands all ok. CBC Hb 16.8 WBC 7.6 Plat 118K Chem Ca 9.4 Cr 0.9 CXR today following bx on 03/15/2019 shows no pneumothorax. Impression St IV bronchogenic carcinoma. Await lung bx outcome. Symptoms modestly better with DXM. Discussed with Dr Guzman patient has a high risk lesion for resection of the symptomatic cerebellar lesion and has no hydrocephalus or impending risk for hydrocephalus as 4th vent is patent. He recommends radiation as first treatment. Patient is not ideal for stereotactic treatment as first therapy as this is a large lesion with significant peritumor edema. Stereotactic treatment upfront may transiently increase edema and mass effect. Therefore, plan on conventional fractionated treatment beginning today then reassess for response and consider a stereotactic boost. Discussed in detail with patient and son. Dr Jean and Paco have beeen consulted to discuss palliative chemotherapy with discussion contingent on biopsy outcome which is still pending. If stable neurologically it would be ok from my perspective to dc for ongoing treatment and ongoing steroid (DXM) coverage as an outpatient. GLENN PARISH MD Mar 16, 2019 10:47
[2019-03-16 11:00] VITALS: BP 118/65
--- NOTE | 2019-03-16 13:29 | CONS ---
DATE OF CONSULTATION: 03/15/2019 ATTENDING PHYSICIAN: Tre Santana M.D. CONSULTING PHYSICIAN: Chris Manning M.D. REASON FOR CONSULTATION: The patient is seen in Pulmonary consultation at the request of Dr. Santana for abnormal CT chest. HISTORY OF PRESENT ILLNESS: The patient is a 68-year-old male who approximately 2 months ago noticed some right hand dysfunction. He also started having some trouble with balance and instability. He started using a walker. He was eventually worked up and found to have a left upper lobe mass. He underwent a lung biopsy. He also had an MRI of the brain on 03/02/2019, revealing 3.5 x 2.7 x 2.3 enhancing cerebellar mass with edema and mass effect. He is currently in the hospital. The patient currently denies any hemoptysis. No increasing shortness of breath. He continues to smoke. Denies fever, chills, nausea, vomiting or diarrhea. He is not experiencing acute exacerbation of his chronic obstructive pulmonary disease on a regular basis. PAST MEDICAL AND SURGICAL HISTORY: Remarkable for arthritis, previous hernia repair. He has had a reversal of a colostomy. No history of diabetes, hypertension or coronary artery disease. ALLERGIES: BUPROPION AND CHLORAPREP. HE IS ALSO INTOLERANT TO CHANTIX. MEDICATIONS: Current medication list was reviewed. REVIEW OF SYSTEMS: As indicated above, otherwise, a 10-point system was reviewed and negative. CONSTITUTIONAL: No fever or chills. EYES: No change in visual acuity. HENT: No nasal congestion or sore throat. PULMONARY: As indicated above. CARDIOVASCULAR: No chest pain. No pressure. GASTROINTESTINAL: No nausea, vomiting or diarrhea. GENITOURINARY: No dysuria or frequency. MUSCULOSKELETAL: As indicated above. NEUROLOGIC: As indicated above. PHYSICAL EXAMINATION: GENERAL: On examination, the patient was in no respiratory distress, currently on 2 liters of oxygen supplementation. HEENT: Eyes, the sclerae were nonicteric. NECK: Jugular venous distention was not elevated. No lymphadenopathy. CHEST: Full expansion. LUNGS: Adequate airway flow, with no wheezes. CARDIOVASCULAR EXAMINATION: Regular rate and rhythm with S1 and S2. No S3. ABDOMEN: Soft, nontender and nondistended. EXTREMITIES: No clubbing, cyanosis or edema. NEUROLOGIC: The patient was awake, alert and following commands. A detailed neuro exam was not performed. LABORATORY DATA: Labs were reviewed. White count was normal. Hemoglobin and hematocrit were noted. Electrolytes were noted. IMPRESSION: 1. Left upper lobe mass. 2. Clinical stage 4 lung cancer. 3. MRI brain revealing metastatic disease to the cerebellar region. 4. Chronic obstructive pulmonary disease, suspect FEV1 approximately 1 liter. 5. Tobacco dependence. PLAN: 1. We will await for biopsy results; If no diagnosis is made, we will proceed with possible bronchoscopy. 2. The patient has been seen by Dr. Good. He will undergo radiation to the cerebellar region tomorrow. 3. Continue oxygen supplementation. 4. Nebulized treatments. I do appreciate the privilege in sharing in the patient's care. CHRIS MANNING MD DR: ELISE/ulysses JOB#: [id number] / [id number]
[2019-03-16] MEDS ORDERED: DEXAMETHASONE 4 MG TABLET PO SCH (14:00)
--- NOTE | 2019-03-16 15:40 | NUR ---
DISCHARGE INSTRUCTIONS GIVEN,FAMILY MEMBER AT THE BEDSIDE, QUESTIONS AND CONCERNS ANSWERED, PATIENT AND FAMILY MEMBER VERBALIZED UNDERSTANDING OF DISCHARGE INFORMATION INCLUDING TAKING ALL MEDICATIONS INSTRUCTED AND FOLLOWING UP WITH HIS PRIMARY PROVIDER WELL RETURNING TO THE OUTPATIENT DEPARTMENT FOR RADIATION TREATMENTS INSTRUCTED. ALL PERSONAL BELONGINGS GATHERED BY THE PATIENT AND FAMILY AND PLACED IN BAGS FOR DISCHARGE. PRESCRIPTIONS GIVEN TO PATIENT FROM DR. PARISH FOR DEXAMETHASONE AND RESTORIL PRIOR TO DISCHARGE.
[2019-03-16] MEDS ORDERED: ZOLPIDEM 5 MG TABLET. PO PRN (15:45)
[2019-03-16] MEDS ORDERED: HYDROcodone/APAP 5/325MG 1 TAB TABLET PO PRN (15:45)
--- NOTE | 2019-03-16 15:55 | NUR ---
PATIENT LEAVES THE UNIT PER W/C ACCOMPANIED BY THIS AUDIOLOGY TECHNICIAN, EMOTIONAL SUPPORT GIVEN, FOLLOW UP APPOINTMENTS ENCOURAGED.
--- NOTE | 2019-03-17 06:56 | CONS ---
DATE OF CONSULTATION: 03/16/2019 MEDICAL ONCOLOGY CONSULTATION REQUESTING PHYSICIAN: Dr. Tre Santana. REASON FOR CONSULTATION: Lung mass and brain metastasis. HISTORY OF PRESENT ILLNESS: The patient is a 68-year-old gentleman who presented to [facility] on 03/14/2019 with a 2-month history of weakness and diminished functioning of his right arm with decreased dexterity and inability to swing a hammer accurately. About 4 weeks prior to his admission, he started noticing slurred speech, poor balance, difficulty with ambulation requiring the use of a walker. He has had 2 falls. No headaches or seizures. His appetite has decreased and has lost 18-20 pounds of weight. He had further workup with an MRI of the brain on 03/02/2019 that revealed metastasis involving the right cerebellum and left frontal lobe, which measured 3.5 and 0.9 cm in size with surrounding edema and associated mass effect without evidence of midline shift or hydrocephalus. He underwent a CT scan of the chest on 03/02/2019, which revealed new lung mass of the inferior segment of the lingula. Stable left lower lobe lung nodule also noted. The mass measures 3.3 cm, present in the lateral aspect of the left upper lobe. No evidence of metastatic disease to the liver or the adrenal gland. He underwent a lung biopsy under CT guidance on 03/15/2019. Radiation Oncology was consulted and I discussed the case with Dr. Celestine Good. He was started on palliative radiation therapy on 03/16/2019. He was also started on Decadron 4 mg t.i.d. I was asked to see the patient for further evaluation and management of lung mass with brain metastasis. PAST MEDICAL HISTORY: He has had right total knee arthroplasties twice, which is still limiting his ambulation. He has history of diverticulitis, status post resection and transient use of colostomy and he has also had hernia repair and a skin cancer resected from the left chest. FAMILY HISTORY: His sister has cancer. SOCIAL HISTORY: He has history of smoking 1-1/2 to 2 packs a day from the age of 17 to age 68 and he continued to smoke at the time of admission to the hospital. REVIEW OF SYSTEMS: A 12-point review of system was performed. Pertinent positives are mentioned in the history of present illness. Rest of the system review is negative. PHYSICAL EXAMINATION: GENERAL APPEARANCE: The patient is a 68-year-old gentleman who is in no acute cardiorespiratory distress. VITAL SIGNS: Blood pressure 118/65, temperature 97.7, heart rate 76, respiratory rate 18. HEAD: Atraumatic, normocephalic. EYES: No icterus. NECK: Supple. CHEST: Bilaterally symmetrical. HEART: S1, S2 normal. ABDOMEN: Soft, nontender. CENTRAL NERVOUS SYSTEM: Alert, awake and oriented x 3. He has impaired coordination, particularly in the right upper extremity and rapid alternating movement of the right hand. He has an ataxic gait. LABORATORY DATA: WBC 7.6, hemoglobin 16.8, platelet count 118. Creatinine 0.9, calcium 9.4, total bilirubin 0.4, AST 21, ALT 26, alkaline phosphatase 99, total protein 7.4, albumin 3.5. IMPRESSION AND PLAN: 1. Left upper lobe lung mass measuring 3.3 cm with evidence of metastatic disease to the brain. He is clinically concerning for primary lung cancer with brain metastasis, stage IV. He has undergone a CT-guided biopsy of the lung mass on 03/15/2019 and I will follow up on the results. I have recommended to continue palliative radiation therapy to the brain since he is symptomatic and then, I will plan for palliative chemotherapy, which would be given according to the histologic diagnosis. I discussed in detail with the patient regarding the clinical concern of stage IV malignancy and I reviewed the need for final histology to initiate chemotherapy and also, I discussed the role of palliative radiation therapy and long-term prognosis. 2. Brain metastasis. Appreciate Neurosurgery and Radiation Oncology consultation. Palliative radiation started on 03/16/2019. Agreed that he can continue radiation as outpatient. 3. Advanced directives. I discussed with him about advanced directives. He has already met with his audience coordinator today and has been working on his living will. He is also leaning towards DNR status. TRISTAN IQBAL MD DR: MARTI/ulysses JOB#: [id number] / [id number]
--- NOTE | 2019-03-17 08:16 | PDOC ---
Provider Note Provider Note [id number] LEOBARDO HORTA MD Mar 17, 2019 08:16
[2019-03-17] MEDS ORDERED: NAPROXEN 250 MG TABLET PO SCH (09:00)
--- NOTE | 2019-03-17 15:58 | DS ---
DATE OF DISCHARGE: 03/16/2019 HOSPITAL SUMMARY: A 68-year-old white male with a known left lung mass and then mass lesions in the right cerebellum and left frontal lobe that has become increasingly symptomatic with weakness, right-sided ataxia, unsteadiness and mild aphasia. He was admitted for urgent diagnostic and oncologic evaluation, has a likely stage 4 lung cancer. He underwent CT-guided needle biopsy of the left lung mass and biopsy reports are pending. Dr. Good saw in consultation and started radiation to the whole brain trying to reduce mainly the size of the right cerebellar lesion. He was seen also by Dr. Jean who discussed with the patient the idea of palliative chemotherapy once cell diagnosis was made. His laboratory studies were unremarkable and imaging studies showed no new lesions in the post chest x-ray after lung biopsy was unremarkable. After his first radiation treatment, he was discharged to be followed as an outpatient. FINAL DIAGNOSES: 1. Stage 4 lung cancer with metastatic lesions to the right cerebellum and left frontal lobe. 2. Ataxia and dysarthria and aphasia secondary to brain lesions. OPERATIONS AND PROCEDURES: CT-guided lung biopsy, radiation therapy. COMPLICATIONS: None. CONSULTATIONS: Dr. Good, Dr. Jean, Dr. Fuentes. DISPOSITION: He will go home on dexamethasone that was started in the hospital at the direction of Dr. Good regarding dosage and duration. Daily radiation for the next 5 weeks and he will see Dr. Jean in consultation as an outpatient once cell type was determined to discuss the options for chemotherapy in palliative fashion. Home meds remain the same. I will see him on a p.r.n. basis and his prognosis is poor. LEOBARDO HORTA MD DR: THANH/ulysses JOB#: [id number] / [id number]
[2019-03-20] MEDS ORDERED: DEXA4TAB63 PO (13:10)
== END 2019-03-16 15:55 | disposition home or self-care (01) | DRG 180 ==
LOC: 5 NORTH 10:42
PROVIDERS: ADMIT Family Medicine; ATTEND Family Medicine
PROC: 0BBL3ZX Excision of Left Lung, Percutaneous Approach, Diagnostic (ICD-10-PCS; principal; 2019-03-14)
PROC: D0Y07ZZ Contact Radiation of Brain (ICD-10-PCS; 2019-03-16)
DX: C34.12 Malignant neoplasm of upper lobe, left bronchus or lung (principal); G93.6 Cerebral edema; C79.31 Secondary malignant neoplasm of brain; R47.01 Aphasia; M19.90 Unspecified osteoarthritis, unspecified site; Z96.651 Presence of right artificial knee joint; F17.210 Nicotine dependence, cigarettes, uncomplicated; J44.9 Chronic obstructive pulmonary disease, unspecified; G93.9 Disorder of brain, unspecified; Z66 Do not resuscitate; R47.1 Dysarthria and anarthria; R27.0 Ataxia, unspecified; Z51.5 Encounter for palliative care; Z93.3 Colostomy status; Z90.49 Acquired absence of other specified parts of digestive tract; Z85.828 Personal history of other malignant neoplasm of skin; Z80.9 Family history of malignant neoplasm, unspecified
CPT/HCPCS: 32405; 36415; 71045; 77012; 77290; 77295; 77300; 77334; 77412; 80053; 85025; 85610; 94640; 94760; 99152; 99153; J1100; J2250; J3010; J7620; J8540

== ENCOUNTER → 2019-03-30 | Outpatient (CLI) | payer MEDICARE ==
[2019-03-16 11:00] VITALS: BP 118/65
[~2019-03-30] MED LIST changes: +DEXA4TAB63 PO
--- NOTE | 2019-03-30 14:57 | RAD ---
FDG tumor localization scan, PET/CT, 03/30/2019: HISTORY: Staging lung cancer Following IV injection of 12.7 mCi of 18 F-FDG, imaging was performed from the skull base to the proximal thighs. The noncontrast CT component was performed for attenuation correction and anatomic localization purposes rather than for primary diagnosis. The patient's blood glucose level at the time of injection was 76 MG/DL. The patient's known 3.5 cm lingular mass is hypermetabolic and demonstrates a maximum SUV of 15.7. No other hypermetabolic pulmonary lesion is seen. There are emphysematous changes in the lungs. There is a hypermetabolic focus in the left paratracheal region demonstrating a maximum SUV of 3.9. This corresponds in location to a 7 mm soft tissue nodule. This represents a nonenlarged hypermetabolic lymph node raising the possibility of a metastasis. There is no other evidence of mediastinal or hilar adenopathy. There is diffusely increased activity within the esophagus, likely on an inflammatory basis. Physiologic activity is present in the neck. No hypermetabolic cervical adenopathy is seen. Incidental note is made of mucosal thickening and fluid in the right maxillary sinus compatible with sinusitis. There is mild streaky increased density in both groin regions along the superior aspects of the inguinal canals. There is associated mildly increased FDG uptake on both sides, more so on the left. The maximum SUV is 7.0. No discrete lymph node is seen. This has the appearance of an inflammatory process or postsurgical change. Normal GI tract and urinary tract activity is present in the abdomen and pelvis. No other hypermetabolic abdominal or pelvic abnormality is seen. IMPRESSION: 1. Hypermetabolic left lung mass compatible with a primary lung malignancy. 2. Small hypermetabolic left paratracheal lymph node raising the possibility of metastatic disease. 3. Diffusely increased activity in the esophagus is likely inflammatory in nature. 4. Increased activity at both groin levels, left greater than right as described above. An inflammatory or posttraumatic process is suspected.
== END | disposition home or self-care (01) ==
LOC: PETSC 09:47
PROVIDERS: ATTEND Family Medicine
DX: C34.12 Malignant neoplasm of upper lobe, left bronchus or lung (principal); J43.9 Emphysema, unspecified
CPT/HCPCS: 78815; A9552

== ENCOUNTER 2019-04-18 08:38 | Outpatient (CLI) | payer MEDICARE ==
[2019-04-18] VITALS (7 sets, daily range): BP systolic 100–132; BP diastolic 51–66
[~2019-04-18] VITALS: Ht 177.8 cm; Wt 74.8 kg
[2019-04-18] MEDS: ceFAZolin SODIUM 1 GM in IV DEXTROSE 5% 50 ML IV ONE ×2 (09:00→09:55)
[2019-04-18 09:16] LABS: CREATININE 0.8 mg/dL (0.7-1.3); GFR 96.7; POTASSIUM 3.9 mmol/L (3.5-5.1)
[2019-04-18 09:20] LABS: PROTHROMBIN TIME PATIENT 11.6 SEC (11.7-14.0)
[2019-04-18] MEDS ORDERED: fentaNYL PF VIAL 100 MCG/2 ML VIAL ONE (09:36)
[2019-04-18] MEDS ORDERED: MIDAZOLAM HCL/PF 2 MG/2 ML VIAL. ONE (09:36)
[2019-04-18] MEDS ORDERED: LIDOCAINE 1%/EPI 1:100,000 20 ML VIAL. ONE (09:43)
[2019-04-18] MEDS ORDERED: LIDOCAINE 1%/EPI 1:100,000 20 ML VIAL. IJ ONE (09:45)
[2019-04-18] MEDS ORDERED: fentaNYL PF VIAL 100 MCG/2 ML VIAL IV ONE (09:45)
[2019-04-18] MEDS ORDERED: MIDAZOLAM HCL/PF 2 MG/2 ML VIAL. IV ONE (09:45)
[2019-04-18] MEDS ORDERED: NYST100054 PO (09:46)
[2019-04-18] MEDS ORDERED: FLUC200T4 PO (09:46)
[2019-04-18] MEDS ORDERED: magic mouthwash (09:46)
[2019-04-18] MEDS ORDERED: HYDR-2765 PO (09:46)
--- NOTE | 2019-04-18 10:44 | RAD ---
Procedure: Ultrasound and fluoroscopically guided placement of right internal jugular power port.. 04/18/2019 10:38 AM Clinical Indication: Lung CA, need for chemotherapy access Sedation: Conscious sedation was administered for 30 minutes. The patient was monitored by a qualified independent observer throughout the time of sedation. Please refer to the medical record for exact doses of medications utilized to achieve moderate sedation. Fluoroscopy time: 1 minutes Dose area product: 2 Gycm2 Consent: The procedure was explained in its entirety to the patient or the patients designated technical sales representatives by a member of the treatment team, including a discussion of the risks, benefits and commonly accepted alternatives to the procedure, as well as the expected consequences of no therapy whatsoever. Discussion of the risks included, but was not limited to, those that are most frequent and those that are rare but possibly severe or life-threatening, as well as the possibility of unforeseen complications. Technique and Findings: All elements of maximal sterile barrier technique including the use of a cap, mask, sterile gown, sterile gloves, large sterile sheet, appropriate hand hygiene, and 2% chlorhexidine for cutaneous antisepsis (or acceptable alternative antiseptic per current guidelines) were followed for this procedure. Following informed consent, and a timeout procedure, the patient was prepped and draped in the usual sterile fashion. Ultrasound interrogation of the right neck revealed patency and compressibility of the right internal jugular vein. A 21-gauge micropuncture was then used to gain access to this vein under ultrasound guidance. A hard copy ultrasound image was recorded. The needle was exchanged over a wire for a sheath. A 1 inch incision was made several centimeters inferior to the venotomy site. A catheter was tunneled from this site dermatotomy site in the neck. Catheter was advanced through peel-away sheath such that its tip was in the proximal right atrium with the patient supine. The catheter was trimmed to length and connected to the port reservoir. The port was found to flush and aspirate normally. The wound was closed in layers using 4-0 Vicryl suture. Sterile dressings were applied. Impression: Successful ultrasound and fluoroscopically guided placement of a right internal jugular PowerPort
--- NOTE | 2019-04-18 12:05 | NUR ---
Pt is A&O x3. rt chest site is D&I. VSS. tolerating po well. denies pain, nausea. ambulated to the BR with his walker w/o problem. d/c instructions reviewed. questions answered. out to vehicle per w/c. son to drive him home
[2019-04-27] MEDS ORDERED: OXYC1TAB19 PO (14:02)
[2019-04-27] MEDS ORDERED: MIRT15TA PO (14:02)
[2019-04-27] MEDS ORDERED: ATEZ1200 IV (14:02)
[2019-04-27] MEDS ORDERED: CARBOPLATIN IV (14:02)
[2019-04-27] MEDS ORDERED: ETOP50CA PO (14:02)
== END 2019-04-18 12:05 | disposition home or self-care (01) ==
LOC: INTRAD 08:38
PROVIDERS: ATTEND Internal Medicine Hematology & Oncology
DX: Z45.2 Encounter for adjustment and management of vascular access device (principal); C34.90 Malignant neoplasm of unspecified part of unspecified bronchus or lung; Z79.899 Other long term (current) drug therapy; Z79.01 Long term (current) use of anticoagulants
CPT/HCPCS: 36415; 36561; 76937; 77001; 80048; 85610; 99152; 99153; C1751; C1788; C1892; J0690; J2250; J3010; J3490

== ENCOUNTER → 2019-05-18 | Outpatient (CLI) | payer MEDICARE ==
[2019-04-18 11:35] VITALS: BP 115/58
[~2019-05-18] MED LIST changes: +ATEZ1200 IV; +CARBOPLATIN IV; +ETOP50CA PO; +FLUC200T4 PO; +HEPARIN PF 500 UNIT/5 ML DISP.SYRIN. IV ONE; +HYDR-2765 PO; +IOHEXOL 240 MG/ML 50ML VIAL. PO ONE; +IOHEXOL 300 MG/ML 100ML VIAL. IV ONE; +MIRT15TA PO; +NYST100054 PO; +OXYC1TAB19 PO; +magic mouthwash
--- NOTE | 2019-05-19 08:40 | RAD ---
PQRS Compliance statement: One or more of the following individualized dose reduction techniques were utilized for this examination: 1. Automated exposure control. 2. Adjustment of the mA and/or kV according to patient size. 3. Use of iterative reconstruction technique. 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 TECHNIQUE: CT chest, abdomen and pelviswith IV contrast with multiplanar reformats. COMPARISON: PET/CT from 03/30/2019 FINDINGS: Right chest wall Chemo-Port is seen with its tip in the SVC. Heart is normal in size. No pericardial or pleural effusion. Clear neck base. 7 mm lymph node is seen in the prevascular space. No enlarged axillary, mediastinal or hilar adenopathy. Stable oval-shaped opacity along the right minor fissure measuring 9 mm (series 2 image 44). Focus of centrilobular nodules with tree-in-bud opacities in the inferior aspect of the right upper lobe (series 2 image 40). Stable 2 mm nodule in the subpleural posterolateral right lower lobe (series 2 image 57). Interval decrease in the size of lingular soft tissue mass measuring 1.7 x 0.7 cm, previously 2.7 x 2.7 cm. No suspicious bony lesions in the chest. No suspicious liver lesion. 1.8 x 1.7 cm low attenuating lesion in spleen. Gallbladder, pancreas, adrenals and left kidney are within normal limits. Most likely a small cyst in the upper pole of the right kidney. No enlarged retroperitoneal or pelvic adenopathy. No free pelvic fluid or ascites. Scattered atherosclerotic plaque in the abdominal aorta with infrarenal ectasia measuring 2.6 cm. No bowel obstruction. Urinary bladder is decompressed however shows no radiopaque stones. The prostate and seminal vesicles show no large mass. Left parasagittal abdominal wall hernia containing omental fat with neck of the hernia measuring 1.3 cm. No suspicious bony lesion. IMPRESSION: 1. Significant interval decrease in the size of lingular mass. 2. New small focus of centrilobular nodules with tree-in-bud opacities in the right upper lobe likely infectious or inflammatory. Attention on follow-up. 3. Splenic lesion likely cyst. Attention on follow-up. Electronically signed by: Alonzo Kramer DO (05/19/2019 8:37 AM) [facility]
== END | disposition home or self-care (01) ==
LOC: CT 08:40
PROVIDERS: ATTEND Internal Medicine Hematology & Oncology
DX: C34.92 Malignant neoplasm of unspecified part of left bronchus or lung (principal); R91.8 Other nonspecific abnormal finding of lung field; I70.0 Atherosclerosis of aorta; I77.811 Abdominal aortic ectasia; D73.89 Other diseases of spleen; F17.200 Nicotine dependence, unspecified, uncomplicated; Z88.8 Allergy status to other drugs, medicaments and biological substances; Z92.21 Personal history of antineoplastic chemotherapy
CPT/HCPCS: 71260; 74177; Q9966; Q9967

== ENCOUNTER → 2019-05-30 | Outpatient (CLI) | payer MEDICARE ==
[2019-04-18 11:35] VITALS: BP 115/58
[~2019-05-30] MED LIST changes: +GADOTERATE 7.5 MMOL/15ML VIAL. IVP ONE; -HEPARIN PF 500 UNIT/5 ML DISP.SYRIN. IV ONE; -IOHEXOL 240 MG/ML 50ML VIAL. PO ONE; -IOHEXOL 300 MG/ML 100ML VIAL. IV ONE
--- NOTE | 2019-05-30 10:39 | RAD ---
MRI Brain with and without contrast History: Lung cancer with brain metastases Technique: Multiplanar, multi sequential pre and postcontrast MR imaging was performed of the brain. Comparison: March 02, 2019 Findings: Previously seen left frontal parenchymal enhancing nodule is smaller, now about 0.3 cm AP by 0.3 cm transverse by 0.2 cm cc, previously on the order of 0.8 cm in size. Associated T2 and FLAIR hyperintense signal has also decreased. Previously seen enhancing right cerebellar mass is much smaller, residual focus of enhancement on the order of 1.4 x 0.8 cm axial oblique dimensions by 0.9 cm CC versus previously 3.6 x 2.2 x 2.5 cm in similar measurement planes. Previously seen associated edema of the right cerebellum has resolved. There is increased moderate T2 and FLAIR hyperintense signal abnormality of the hannah not associated with enhancement. No new abnormal intracranial enhancement is identified. Other mild to moderate T2 and FLAIR hyperintense signal of the periatrial and parietal white matter bilaterally is similar. Other scattered minimal T2 and FLAIR hyperintense signal of the supratentorial parenchyma is unchanged. There is mild generalized supratentorial involutional change. There is no evidence of recent infarct or cytotoxic edema. Ventricular size is stable, within normal limits. There is preservation of the major arterial intracranial flow voids at the skull base. There is minimal bilateral ethmoid air cell, right sphenoid sinus, and right maxillary sinus mucosal thickening. There is patchy [id number] fluid of the right mastoid air cells, to a somewhat lesser degree on the left, overall somewhat increased. Cerebellar tonsils are normal in location. There is preserved marrow signal of the clivus. There is no significant abnormality of the small pituitary gland or pineal gland. Impression: 1. Previously seen left frontal and right cerebellar masses are smaller, resolution of previously seen right cerebellar edema. No new abnormal intracranial enhancement is identified. 2. There is increased, nonenhancing, nonspecific T2 and FLAIR hyperintense signal of the hannah probably component of post therapeutic change. Other scattered T2 and FLAIR hyperintense signal of the supratentorial parenchyma is similar, likely component of chronic microvascular ischemic disease. Electronically signed by: Aubrey Wallace MD (05/30/2019 10:36 AM) [id number]
== END | disposition home or self-care (01) ==
LOC: MRI 09:10
PROVIDERS: ATTEND Radiology Radiation Oncology
DX: C79.31 Secondary malignant neoplasm of brain (principal); C34.90 Malignant neoplasm of unspecified part of unspecified bronchus or lung; Z88.8 Allergy status to other drugs, medicaments and biological substances; Z87.891 Personal history of nicotine dependence
CPT/HCPCS: 70553; A9575

== ENCOUNTER → 2019-06-26 | Outpatient (CLI) | payer MEDICARE ==
[2019-04-18 11:35] VITALS: BP 115/58
[~2019-06-26] MED LIST changes: -GADOTERATE 7.5 MMOL/15ML VIAL. IVP ONE
--- NOTE | 2019-06-26 11:24 | RAD ---
Ultrasound venous Doppler INDICATION:Right leg swelling. TECHNIQUE: Grayscale, color Doppler and spectral waveform ultrasound images of the right lower extremity deep veins obtained. COMPARISON: None FINDINGS: The interrogated deep veins are compressible and demonstrate evidence of blood flow with normal respiratory variation and response to augmentation. IMPRESSION: No sonographic evidence of acute DVT of the right lower extremity deep veins. Electronically signed by: Alonzo Kramer DO (06/26/2019 11:21 AM) [id number]
== END | disposition home or self-care (01) ==
LOC: US 10:09
PROVIDERS: ATTEND Internal Medicine Hematology & Oncology
DX: M79.89 Other specified soft tissue disorders (principal); M79.604 Pain in right leg
CPT/HCPCS: 93971

== ENCOUNTER → 2019-07-04 | Outpatient (CLI) | payer MEDICARE ==
[2019-04-18 11:35] VITALS: BP 115/58
[~2019-07-04] MED LIST changes: +CONTRAST GIVEN. MC PRN; +IOHEXOL 240 MG/ML 50ML VIAL. PO ONE; +IOHEXOL 300 MG/ML 100ML VIAL. IV ONE
--- NOTE | 2019-07-04 17:07 | RAD ---
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 Comparison/Correlation: 05/18/[address] chest abdomen and pelvis with contrast Findings: Axial images of the chest, abdomen, and pelvis were obtained following IV contrast. Sagittal and coronal reformatted images were provided. Right central venous infusion port catheter tip is identified terminating at the superior cavoatrial junction. No enlarged thoracic lymph nodes. Diffuse emphysematous involvement of the lung do noted. Linear density is noted involving the lingula. Minimal interstitial thickening of the right upper lobe adjacent to the minor fissure. Perifissural lymph node about the minor fissure is again seen. Pulmonary hyperinflation is present. Calcific granulomas involving the liver and spleen. Pancreas and adrenal glands are unremarkable. Low-attenuation lesion involving the splenic dome is again seen without change. Gallbladder fossa is unremarkable. Adrenal glands are normal. No enlarged abdominal or pelvic lymph nodes. Fusiform infrarenal abdominal aortic aneurysm measuring up to 2.9 cm diameter is present with a longitudinal length of 4.3 cm. Urinary bladder is unremarkable. Left lower quadrant abdominal wall defect containing minimal omental fat is present. Correlate with surgical history. Sacralization of L5 is noted. Impression: Decrease in bilateral lower lung field interstitial infiltrates. Emphysema. No abdominal or pelvic mass in the interval. Infrarenal abdominal aortic aneurysm. PQRS Compliance Statement: One or more of the following individualized dose reduction techniques were utilized for this examination: 1. Automated exposure control 2. Adjustment of the mA and/or kV according to patient size 3. Use of iterative reconstruction technique Electronically signed by: Vineet Vincent MD (07/04/2019 5:04 PM) [facility]
== END | disposition home or self-care (01) ==
LOC: CT 08:33
PROVIDERS: ATTEND Internal Medicine Hematology & Oncology
DX: C34.92 Malignant neoplasm of unspecified part of left bronchus or lung (principal); J43.9 Emphysema, unspecified; D73.89 Other diseases of spleen; K75.3 Granulomatous hepatitis, not elsewhere classified; I71.4 Abdominal aortic aneurysm, without rupture
CPT/HCPCS: 71260; 74177; Q9966; Q9967

== ENCOUNTER → 2019-09-13 | Outpatient (CLI) | payer MEDICARE ==
[2019-04-18 11:35] VITALS: BP 115/58
[~2019-09-13] MED LIST changes: +GADOTERATE 7.5 MMOL/15ML VIAL. IVP ONE
--- NOTE | 2019-09-13 10:30 | RAD ---
MRI of the Brain without and with Contrast 09/13/2019 Clinical History: Lung cancer with brain metastasis. Technique: Unenhanced T1-weighted sagittal and axial and FLAIR, T2-weighted, gradient echo and diffusion-weighted axial images of the brain were obtained. After the intravenous administration of 12 cc of DOTAREM, enhanced T1-weighted axial, sagittal and coronal images of the brain were obtained. Findings: Comparison study is dated 05/30/2019. There is generalized parenchymal atrophy. Patchy, confluent and multiple focal areas of abnormally increased signal intensity are seen within the periventricular and subcortical white matter of both cerebral hemispheres along with the hannah on the FLAIR and T2-weighted images consistent with areas of small vessel ischemic disease. These have not significantly changed. An enhancing nodule is seen involving the left frontal lobe which measures 2.5 x 2.3 x 1.5 mm in AP, craniocaudal and transverse dimensions. This is consistent with a metastasis. It has decreased in size since the previous examination where it measured 3.3 x 3.5 x 3.2 cm in size. There is no significant surrounding edema or associated mass effect. An enhancing mass is seen involving the right superior cerebellar hemisphere, anteriorly. This measures 8 x 4.7 x 3.9 mm in craniocaudal, AP and transverse dimensions. This has decreased in size since the previous study where it measured 11 x 15 x 11 mm in size. There is no surrounding edema or associated mass effect. No new enhancing lesion is seen. There is no MRI evidence of acute ischemia/infarction. No extra-axial fluid collection is seen. Mild mucosal thickening is seen scattered throughout the paranasal sinuses. There are small to moderate-sized mastoid effusions, right greater than left. Normal voids are seen within the major vascular structures surrounding the brain parenchyma. Impression: Interval decrease in size of the small metastasis involving the left frontal and right cerebellar hemisphere as discussed above. No new metastasis is seen. Electronically signed by: Oj Craig MD (09/13/2019 10:27 AM) [id number]
--- NOTE | 2019-09-13 15:27 | RAD ---
CT study of the chest and abdomen and pelvis with contrast Clinical indications: Small cell carcinoma. Fatigue. Follow-up study. COMPARISON: July 04, 2019. TECHNIQUE: After IV infusion of 75 cc of Omnipaque 300, helical CT scanning of the chest and abdomen and pelvis was performed. GI contrast was administered per mouth. PQRS compliance Statement One or more of the following individualized dose reduction techniques were utilized for this study: 1. Automated exposure control 2. Adjustment of the mA and/or kV according to patient size 3. Use of iterative reconstruction technique CHEST CT: No enlarging thoracic lymphadenopathy is evident. No focal aneurysmal dilatation or dissection thoracic aorta is seen. Heart size normal and no pericardial effusion is evident. No pleural effusion or pneumothorax is evident. Bilateral emphysema is seen. There is a calcified granuloma within the left lower lobe posteriorly. There is a small intrafissural lymph node within the right middle lobe adjacent to the minor fissure. This is unchanged. There is chronic scarring within the inferior segment lingula. This is unchanged. No new lung infiltrate or new lung nodule is evident. The proximal bronchial tree is patent. No lytic process is seen. IMPRESSION: No new abnormality of the chest. Stable chest CT. ABDOMEN AND PELVIS CT: The liver is unremarkable. The spleen is not enlarged. Again seen is a hypodense lesion within the superior aspect of the spleen which is unchanged. This most commonly represents a hemangioma. The pancreas and gallbladder are unremarkable. No extrahepatic biliary ductal dilatation is seen. No adrenal mass is evident. No hydronephrosis is evident. There is a small subcentimeter hypodense nodule of the superior pole of the right kidney most likely represents a cyst and it is unchanged. No renal mass is evident. Infrarenal abdominal aortic aneurysm is seen which measures 2.9 cm in greatest caliber. This is unchanged. No enlarged abdominal or pelvic lymphadenopathy is evident. Urinary bladder wall is smooth. No obstructive bowel pattern is evident. No soft tissue mass is evident. No free air or free fluid or mesenteric edema is seen. No lytic process is evident. IMPRESSION: No new abnormality. Electronically signed by: Tobin Saucedo MD (09/13/2019 3:24 PM) [facility]
== END | disposition home or self-care (01) ==
LOC: MRI 08:56
PROVIDERS: ATTEND Internal Medicine Hematology & Oncology
DX: C34.12 Malignant neoplasm of upper lobe, left bronchus or lung (principal); C79.31 Secondary malignant neoplasm of brain; J43.9 Emphysema, unspecified; I71.4 Abdominal aortic aneurysm, without rupture; J84.10 Pulmonary fibrosis, unspecified; N28.1 Cyst of kidney, acquired; R53.83 Other fatigue; F17.200 Nicotine dependence, unspecified, uncomplicated; J34.89 Other specified disorders of nose and nasal sinuses; Z90.89 Acquired absence of other organs; Z90.49 Acquired absence of other specified parts of digestive tract
CPT/HCPCS: 70553; 71260; 74177; A9575; Q9966; Q9967

== ENCOUNTER → 2019-11-16 | Outpatient (CLI) | payer MEDICARE ==
[2019-04-18 11:35] VITALS: BP 115/58
[~2019-11-16] MED LIST changes: -CONTRAST GIVEN. MC PRN; -GADOTERATE 7.5 MMOL/15ML VIAL. IVP ONE
--- NOTE | 2019-11-16 15:25 | RAD ---
EXAM: CT Chest, Abdomen, and Pelvis with IV contrast INDICATION: Small cell lung cancer. Follow-up. TECHNIQUE: Multi-detector row CT images were acquired from the thoracic inlet through the ischial tuberosities with the use of IV contrast. Sagittal and coronal images were acquired from the transaxial data. All CT scans performed at this facility utilize dose optimization techniques as appropriate to the exam, including the following: Automated exposure control and adjustment of the mA and/or KV according to patient size (this includes techniques or standardized protocols for targeted exams where dose is indication/reason for exam). IV CONTRAST: Administered ORAL CONTRAST: Administered COMPARISON: 09/13/[address] with IV contrast FINDINGS: CHEST: CARDIOVASCULAR: Stable right chest port with tip near the cavoatrial junction. Scattered coronary calcifications. MEDIASTINUM & CARLOTTA: No adenopathy or masses. LUNGS: Stable left lower lobe calcified granuloma and panlobular pattern emphysema affecting the upper lobes the greatest extent. Similar appearance to pleural parenchymal scarring in the left upper lobe. No pulmonary infiltrate, nodule, or other focal abnormality otherwise noted. PLEURAL SPACE: No pleural effusions or pneumothorax. OSSEOUS & SOFT TISSUE: Unremarkable ABDOMEN/PELVIS: LIVER: Unremarkable BILIARY SYSTEM: Gallbladder is unremarkable. Bile ducts are not dilated. PANCREAS: Unremarkable SPLEEN: Unremarkable ADRENALS: Unremarkable KIDNEYS & URETERS: Stable 7 mm hypodense oval lesion of the superior pole right kidney compatible with a cyst. BLADDER: Unremarkable REPRODUCTIVE ORGANS: Unremarkable GASTROINTESTINAL: The stomach, small bowel, and colon are unremarkable. The appendix is normal. MESENTERY/PERITONEUM/RETROPERITONEUM: Minimal soft tissue stranding, evidence around the abdominal aorta from the celiac axis origin down to the origin of the bilateral common iliac arteries. VASCULAR: Ectasia of the abdominal aorta up to 2.5 cm distally is still present. LYMPH NODES: No adenopathy OSSEOUS & SOFT TISSUES: Unremarkable IMPRESSION: 1. Similar-appearing posttreatment scarring in the left upper lobe in the setting of panlobular emphysema with no findings suggesting recurrent or progressive malignancy. 2. Developing retroperitoneal soft tissue stranding that could reflect fibrotic changes. Correlate clinically and consider close follow-up, especially in the setting of infrarenal abdominal aortic ectasia to 2.5 cm diameter. Electronically signed by: Tesha Blanca MD (11/16/2019 3:21 PM) [facility]
== END | disposition home or self-care (01) ==
LOC: CT 09:11
PROVIDERS: ATTEND Internal Medicine Hematology & Oncology
DX: C34.92 Malignant neoplasm of unspecified part of left bronchus or lung (principal); J43.1 Panlobular emphysema; J84.10 Pulmonary fibrosis, unspecified; R91.8 Other nonspecific abnormal finding of lung field; I25.10 Atherosclerotic heart disease of native coronary artery without angina pectoris; N28.1 Cyst of kidney, acquired; N28.89 Other specified disorders of kidney and ureter; I77.811 Abdominal aortic ectasia
CPT/HCPCS: 71260; 74177; Q9966; Q9967

== ENCOUNTER → 2020-03-08 | Outpatient (CLI) | payer MEDICARE ==
[2019-04-18 11:35] VITALS: BP 115/58
[~2020-03-08] MED LIST changes: +CONTRAST GIVEN. MC PRN; +GADOTERATE 7.5 MMOL/15ML VIAL. IVP ONE
--- NOTE | 2020-03-08 09:59 | RAD ---
CT CHEST ABD PELVIS W/CONTRAST Indication: Lung cancer Technique: Postcontrast CT imaging was performed of the chest, abdomen, pelvis, multiplanar reconstruction images submitted. Oral contrast was also given. One or more of the following individualized dose reduction techniques were utilized for this examination: 1. Automated exposure control 2. Adjustment of the mA and/or kV according to patient size 3. Use of iterative reconstruction technique. Comparison: 11/16/2019; July 04, 2019; November 15, 2018 CHEST: Findings: This is similar focus of subsolid left upper lobe density with some adjacent reticulation such as seen image 39 series 3, greatest overall dimension including reticulation about 1.9 cm transverse by 2.3 cm AP by about 0.9 cm CC. There is similar oblong focus of nodular density in the right middle lobe adjacent to the minor fissure 0.9 cm transverse by 0.4 cm AP by 0.4 cm cc. Small right lower lobe subpleural nodule image 50 series 3 about 0.4 cm is stable. There is small calcified left lower lobe nodule. No new suspicious pulmonary nodularity is identified. There is again emphysema with upper zone predominance. There is again right internal jugular port catheter, tip near cavoatrial junction. No new significantly enlarged nodes are identified of the chest. Right precarinal node about 0.6 cm short axis dimension is similar. There is mild density in the trachea as well as in the mainstem bronchi. IMPRESSION: 1. Thoracic findings are unchanged, similar focus of left upper lobe density which may be sequela of fibrotic/post therapeutic change. There are some other stable nodules as stated. There is again emphysema with upper zone predominance. Minimal density in the trachea and mainstem bronchi is more likely due to mucus than mass. Abdomen pelvis FINDINGS: No new focal abnormality is identified of the liver. There are again hepatic and splenic granulomas. Tiny hypodense lesion of the left lobe of the liver about 0.4 cm image 9 series 4 is otherwise too small to accurately characterize, fairly similar dating back to November 2018 exam. Both kidneys enhance, no hydronephrosis. There is stable 0.8 hypodense lesion of the superior right kidney, density characteristics greater than a simple cyst although otherwise difficult characterize given smaller size. Gallbladder is present without obvious intraluminal abnormality by CT. No new focal abnormality is identified of the pancreas. There is again fullness of the left adrenal gland although progressed compared with older exam, more nodular appearance of the lateral limb such as seen image 22 series 4 with possible nodule about 1.2 cm. No discrete right adrenal nodularity is identified. There is again relative ectasia of the infrarenal abdominal aorta about 2.7 cm versus more proximal caliber about 1.7 cm, again scattered plaque present of the abdominal aorta and iliac arteries. Previously seen hazy retroperitoneal density of the abdomen has decreased. No new significantly enlarged nodes are identified. Bowel is not significantly dilated. There is no free fluid or free air. There is some possible mild wall thickening of the distal descending colon to the rectum. There is lumbar degenerative disc disease greatest at L5-S1. There is narrowing of the right L5-S1 neural foramen with contact exiting right L5 nerve root, probably in part from a small gas containing extrusion in combination with disc osteophyte complex and facet degenerative change. There is other multilevel lumbar neural foramina compromise. There is lumbar dextroscoliosis. There is degree of lateral recess stenosis bilaterally at L4-5. IMPRESSION: 1.There is again fullness of the left adrenal gland although somewhat increased nodular appearance of the lateral limb such as comparing with older exams, attention on future follow-up advised as adrenal metastasis not excluded although findings could be secondary to hyperplasia. 2. Not well opacified with oral contrast during exam, there is appearance of degree of wall thickening of the distal descending colon to the rectum as could be seen with proctocolitis, cannot accurately exclude underlying mass by this exam. 3. There is again relative ectasia of the infrarenal abdominal aorta. Electronically signed by: Aubrey Wallace MD (03/08/2020 9:56 AM) [id number]
--- NOTE | 2020-03-08 10:18 | RAD ---
MRI Brain with and without contrast History:Lung cancer Technique: Multiplanar, multi sequential pre and postcontrast MR imaging was performed of the brain. Comparison: September 13, 2019 Findings: There is residual enhancement of the medial right cerebellum at the medial aspect of the right middle cerebellar peduncle overall somewhat smaller, now measures about 0.4 cm AP by 0.5 cm transverse by 0.5 cm CC versus previously about 0.7 cm AP by 0.8 cm transverse by 0.6 cm cc. There is some associated subtle FLAIR hyperintense signal as well as subtle hemosiderin deposition. No new abnormal intracranial enhancement is identified. There is no new midline shift or extra-axial fluid collection. There is severe T2 and FLAIR hyperintense signal of the supratentorial parenchyma bilaterally which has somewhat progressed in the interval most notable of the bilateral centrum semiovale. There is similar mild T2 and FLAIR hyperintense signal abnormality of the hannah. Ventricular size is similar, mild supratentorial involutional change There is preservation of the major arterial intracranial flow voids at the skull base. There is right greater than left patchy fluid of the mastoid air cells although somewhat decreased on the right. There is new complete opacification of the right maxillary sinus with heterogeneous signal characteristics. There is also new opacification of the mid to anterior right ethmoid air cells and new complete opacification of the frontal sinus also with somewhat heterogeneous signal features. Impression: 1. Previously seen focus of right cerebellar enhancement is somewhat smaller, no new abnormal intracranial enhancement. 2. There is fairly severe T2 and FLAIR hyperintense signal of the supratentorial parenchyma bilaterally somewhat progressed interval which may be due to sequela of post therapeutic change in combination with chronic microvascular ischemic disease. 3. There has been interval development of complete opacification of the right maxillary and frontal sinus and also of mid to anterior right ethmoid air cells. There are somewhat heterogeneous signal features as may be seen with inspissated debris/mucous. Electronically signed by: Aubrey Wallace MD (03/08/2020 10:15 AM) [place] [id number]
== END | disposition home or self-care (01) ==
LOC: CT 07:38
PROVIDERS: ATTEND Internal Medicine Hematology & Oncology
DX: I71.4 Abdominal aortic aneurysm, without rupture (principal); M51.37 Other intervertebral disc degeneration, lumbosacral region; M48.07 Spinal stenosis, lumbosacral region; M25.78 Osteophyte, vertebrae; M41.86 Other forms of scoliosis, lumbar region; K76.89 Other specified diseases of liver; D73.89 Other diseases of spleen; N28.89 Other specified disorders of kidney and ureter; R91.8 Other nonspecific abnormal finding of lung field; J43.9 Emphysema, unspecified; Z85.118 Personal history of other malignant neoplasm of bronchus and lung
CPT/HCPCS: 70553; 71260; 74177; A9575; Q9966; Q9967

== ENCOUNTER → 2020-07-01 | Outpatient (CLI) | payer MEDICARE ==
[2019-04-18 11:35] VITALS: BP 115/58
[~2020-07-01] MED LIST changes: -CONTRAST GIVEN. MC PRN; -GADOTERATE 7.5 MMOL/15ML VIAL. IVP ONE; -IOHEXOL 240 MG/ML 50ML VIAL. PO ONE; -IOHEXOL 300 MG/ML 100ML VIAL. IV ONE
--- NOTE | 2020-07-01 16:18 | RAD ---
BONE SCAN 3 PHASE, IN SCANNING RESOURCE Clinical Indication: Reason: right knee pain, swelling for 1 1/2 years. Eval hardware loosening. Right knee replacement 2017 and 2018. History of lung cancer. Comparison: MR brain with and without contrast March 08, 2020. TECHNIQUE: Patient is injected with 26 mCi of technetium 99m MDP. Anterior and posterior angiographic phase images of the knees acquired. Immediate static anterior and posterior images of the knees. Multiprojection images of the knees acquired after routine delay. Anterior and posterior whole-body planar images acquired. Findings: Angiographic phase images are negative. Immediate static (blood pool) images are negative. On the delay images there is minimal tracer uptake adjacent to the right knee prosthesis, within expected limits. There is increased tracer uptake right of midline in region of the nasal bones. On MR brain there is paranasal sinus disease which appears chronic which may account for the increased tracer uptake. There is symmetric increased tracer uptake of the acromioclavicular joints that is likely degenerative. Tracer uptake in the spine is mildly heterogeneous. Tracer uptake in ribs and pelvic bones is symmetric. Tracer distribution in the soft tissues otherwise appears normal. IMPRESSION: 1. No scintigraphic evidence of right knee arthroplasty loosening. 2. Increased tracer uptake of the right nasal region may be due to paranasal sinus disease. Electronically signed by: Giuseppe Brown MD (07/01/2020 4:16 PM) [facility]
== END ==
LOC: NM 10:59
PROVIDERS: ATTEND Orthopaedic Surgery
DX: T84.84XD Pain due to internal orthopedic prosthetic devices, implants and grafts, subsequent encounter (principal)
CPT/HCPCS: 78315; A9503

== ENCOUNTER → 2020-07-10 | Outpatient (CLI) | payer MEDICARE ==
[2019-04-18 11:35] VITALS: BP 115/58
[~2020-07-10] MED LIST changes: +CONTRAST GIVEN. MC PRN; +GADOTERATE 7.5 MMOL/15ML VIAL. IVP ONE; +IOHEXOL 240 MG/ML 50ML VIAL. PO ONE; +IOHEXOL 300 MG/ML 100ML VIAL. IV ONE
--- NOTE | 2020-07-10 10:36 | RAD ---
EXAM: MRI BRAIN WITH AND WITHOUT CONTRAST. HISTORY: Occipital headaches, metastatic disease. TECHNIQUE: Magnetic resonance images of the brain were obtained before and after the intravenous administration of 13 mL Dotarem. COMPARISON: 03/08/2020. FINDINGS: An enhancing lesion within the right cerebellar peduncle measures 7 x 8 mm, unchanged since the prior study. There is some associated T2* signal loss consistent with remote blood products. No other enhancing lesions are identified. There is no diffusion restriction. Extensive T2/FLAIR hyperintensity throughout the hemispheric white matter likely reflects postradiation change and appears stable. Prominence of the lateral ventricles and hemispheric sulci indicates moderate atrophy. The right maxillary sinus, frontal sinus and the right ethmoid air cells remain opacified. There is a small mucus retention cyst in the left ethmoid air cells. There are small air-fluid levels in the right maxillary sinus and the right aspect of the sphenoid sinus. The orbits are unremarkable. There is a small amount of fluid in the left greater than right mastoid air cells. The calvarium demonstrates no suspicious lesions. IMPRESSION: 1. 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 No new lesions are identified. 2. Moderate to severe atrophy and extensive white matter changes likely reflecting prior radiotherapy. 3. Persistent opacification of the right maxillary and frontal sinuses. Changes of mild acute sinus disease elsewhere as above. Electronically signed by: Cristóbal Salvador MD (07/10/2020 10:33 AM) [id number]
--- NOTE | 2020-07-10 11:15 | RAD ---
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 Instructions: INJ 75ML OMNI 300 30ML OMNI 240 PO / History: TECHNIQUE: Multi-detector row CT images were acquired from the thoracic inlet through the upper abdomen with the use of IV contrast. Sagittal and coronal images were acquired from the transaxial data. All CT scans performed at this facility utilize dose optimization techniques as appropriate to the exam, including the following: Automated exposure control and adjustment of the mA and/or KV according to patient size (this includes techniques or standardized protocols for targeted exams where dose is indication/reason for exam). IV CONTRAST: Administered COMPARISON: Contrast-enhanced chest CT 03/08/[address] with IV contrast 05/18/2019 FINDINGS: CARDIOVASCULAR: Unremarkable MEDIASTINUM & CARLOTTA: No adenopathy or masses. LUNGS: Centrilobular emphysema redemonstrated. The groundglass opacity previously evident in the anterior left upper lobe now more closely resembles an area of linear scarring (image 43 of axial series 2 and coronal image 14 series 5) with interval decreased nodularity (compared with image 39 of series 3 and coronal image 16 of series 6 on the prior study). This represents a marked interval decrease in size of the previously evident lingula mass compared with 05/18/2019, and further improvement from the more recent 03/08/2020 study. Stable 0.9 x 0.4 x 0.4 cm oblong nodularity in the right middle lobe along the minor fissure (image 8 of coronal series 5 and image 43 of axial series 2, compared with axial image 39 of series 3 and coronal image 10 of series 6 on the prior) Stable linear nodular density in the posterior lateral right lower lobe (comparing image 52 of series 2 this exam with image 50 of series 3 on the prior exam). PLEURAL SPACE: No pleural effusions or pneumothorax. OSSEOUS & SOFT TISSUE: Unremarkable ABDOMEN: Included upper abdomen shows scattered hepatic calcifications but no adenopathy. There is similar mild fullness to the left adrenal gland. Multiple splenic calcifications are also evident. The lesion in the spleen reported on previous examinations is obscured by the heterogeneous enhancement pattern of the spleen on this predominantly arterial phase study. IMPRESSION: Emphysema with evidence of a continued positive treatment response of the former mass in the lingula with no findings suspicious for disease recurrence in the chest. Electronically signed by: Tesha Blanca MD (07/10/2020 11:12 AM) [id number]
== END | disposition home or self-care (01) ==
LOC: MRI 08:19
PROVIDERS: ATTEND Internal Medicine Hematology & Oncology
DX: C34.92 Malignant neoplasm of unspecified part of left bronchus or lung (principal); J43.2 Centrilobular emphysema; J98.4 Other disorders of lung; D73.89 Other diseases of spleen; G31.9 Degenerative disease of nervous system, unspecified; J01.90 Acute sinusitis, unspecified; R91.1 Solitary pulmonary nodule
CPT/HCPCS: 70553; 71260; 74177; A9575

== ENCOUNTER → 2020-10-09 | Outpatient (CLI) | payer MEDICARE ==
[2019-04-18 11:35] VITALS: BP 115/58
[~2020-10-09] MED LIST changes: -CONTRAST GIVEN. MC PRN; +MIRT-36 PO; -MIRT15TA PO
--- NOTE | 2020-10-10 08:17 | KCIC ---
MRI BRAIN WO+W Date: 10/09/2020 2:06 PM Indication: MONITORING FOR LUNG CA. Small cell lung CA with brain mets. / History: F/U imaging, h/o chemo/radiation. 12cc Clariscan. Comparison: 07/10/2020. Technique: Multiplanar multisequence MRI of the brain was performed with and without intravenous cont rast using the standard protocol. 12 cc Clariscan contrast was administered intravenously during the exam. Findings: Stable right cerebellar 8 mm enhancing focus with associated gradient susceptibility artifact. No new enhancing lesions. No acute infarct. No acute hemorrhage. The ventricles are normal in size and configuration without hy drocephalus. Extensive FLAIR hyperintense signal in the subcortical and periventricular deep white ma tter, likely a combination of posttreatment change and chronic small vessel ischemic disease. Moderat e cerebral volume loss. The scalp and calvarium are normal. The pituitary and sella are normal. No Chiari malformation. The v isualized upper cervical spine is normal. The visualized orbits and globes are normal. Opacification of the right maxillary sinus and frontal s inuses. Mild ethmoid and sphenoid sinus disease. The mastoid air cells are clear. Normal flow voids within the vertebral, basilar, and internal carotid arteries indicating patency. IMPRESSION: No evidence of disease progression. Stable right cerebellar 8 mm enhancing lesion. No new enhancing l esions. Electronically signed by: Aubrey Han MD (10/10/2020 8:14 AM) [id number]
--- NOTE | 2020-10-10 11:40 | KCIC ---
CT of the chest, abdomen, and pelvis 10/10/2020 INDICATION: History of lung cancer. COMPARISON STUDY: Comparison study: July 10, 2020 CT chest abdomen pelvis. TECHNIQUE: Multidetector CT imaging of the chest, abdomen, and pelvis was performed following the adm inistration of IV contrast. FINDINGS: The bony thorax is grossly intact. There is a right internal jugular port. Catheter tip noted at the cavoatrial junction. Heart size is normal no pericardial effusion is seen. Scattered small mediastina l and hilar lymph nodes are seen without evidence of pathologically enlarged adenopathy. There is no pneumothorax or significant effusion. Centrilobular emphysematous changes are again noted. Small calcified nodule in the left lower lobe is similar. Areas of scarring in lung bases are seen. N o new nodules or masses are identified. All of the previously identified nodular opacities, as descri bed in the comparison study, or other stable or less prominent than on today's exam. Solid viscera of the abdomen are unremarkable without evidence of metastatic disease. There is no bow el obstruction. No evidence of acute inflammatory change involving the bowel is identified. No free f luid or free air seen in the abdomen or pelvis. Evidence of prior granulomatous disease involving the spleen incidentally noted. No acute osseous changes are identified in the abdomen or pelvis. IMPRESSION: 1. No evidence of recurrent or metastatic disease involving the chest abdomen or pelvis is identified . 2. All the previously described subcentimeter pulmonary nodules are either stable or decreased in siz e in the interim CT DOSING PQRS STATEMENT: One or more of the following individualized dose reduction techniques were utilized for this examinat ion: 1. Automated exposure control 2. Adjustment of the mA and/or kV according to patient size 3. Use of iterative reconstruction technique Electronically signed by: Surya Domínguez MD (10/10/2020 11:37 AM) [id number]
== END ==
LOC: KCIC MRI 13:44
PROVIDERS: ATTEND Internal Medicine Hematology & Oncology
DX: C34.92 Malignant neoplasm of unspecified part of left bronchus or lung (principal); G93.89 Other specified disorders of brain
CPT/HCPCS: 70553; 71260; 74177; A9575; Q9966; Q9967

== ENCOUNTER → 2020-12-18 | Outpatient (CLI) | payer MEDICARE ==
[2019-04-18 11:35] VITALS: BP 115/58
[~2020-12-18] MED LIST changes: +CONTRAST GIVEN. MC PRN
--- NOTE | 2020-12-18 11:22 | RAD ---
CT of the chest, abdomen, and pelvis 12/18/2020 INDICATION: Restaging, lung cancer. COMPARISON STUDY: CT imaging of the chest October 09, 2020. CT of the chest abdomen and pelvis [facility] 2019. TECHNIQUE: Multidetector CT imaging of the chest, abdomen, and pelvis was performed following the adm inistration of contrast. FINDINGS: Right internal jugular port is present. Heart size is normal. No pericardial effusion is id entified. Scattered small mediastinal lymph nodes are noted. Borderline lymph nodes in the right hilu m is stable from comparison exam measuring 1.3 cm in diameter. Severe centrilobular emphysema is note d. There is no pneumothorax, pleural effusion, or focal consolidative infiltrate. Areas of subpleural scarring are seen bilaterally in the left upper lobe site of prior mass. There is a calcified nodule in the left lower lobe, unchanged. There is a 4 to 5 mm noncalcified nodule in the right middle lobe along the minor fissure best seen on sagittal image 49. This is unchanged from CT chest from [facility] 2019. Liver, spleen, pancreas, adrenal glands, gallbladder, and kidneys, demonstrate no acute normality. Mu ltiple splenic calcifications suggestive of prior granulomatous disease noted. There is no bowel obst ruction. No evidence of acute inflammatory change involving the bowel is identified. Limited evaluati on of the bladder is unremarkable. No significant free fluid or free air seen in the abdomen or pelvi s. No acute osseous changes are identified. IMPRESSION: 1. No new evidence of metastasis or progression of disease. 2. Stable 4 to 5 mm noncalcified nodule along the minor fissure in the right middle lobe, unchanged s shania July 10, 2020. There are ancillary findings suggesting a prior history of granulomatous dis ease. However, given patient's risk factors, recommend CT surveillance to ensure minimum two-year sta bility CT DOSING PQRS STATEMENT: One or more of the following individualized dose reduction techniques were utilized for this examinat ion: 1. Automated exposure control 2. Adjustment of the mA and/or kV according to patient size 3. Use of iterative reconstruction technique Electronically signed by: Surya Domínguez MD (12/18/2020 11:20 AM) [id number]
--- NOTE | 2020-12-18 12:51 | RAD ---
MRI of the Brain without and with Contrast Clinical History: Small cell lung cancer with brain metastasis.. Technique: Unenhanced T1-weighted sagittal and axial and FLAIR, T2-weighted, gradient echo and diffus ion-weighted axial images of the brain were obtained. After the intravenous administration of 12 cc o f CLARISCAN, enhanced T1-weighted axial, sagittal and coronal images of the brain were obtained. Findings: Comparison study is dated 10/09/2020. There is generalized parenchymal atrophy. Patchy, confluent and multiple small focal areas of abnorma lly increased signal intensity are seen within the periventricular and subcortical white matter of herve th cerebral hemispheres along with the hannah on the FLAIR and T2-weighted images. These likely reflect a combination of areas of small vessel ischemic disease and changes related to radiation and/or chem otherapy treatment. They are unchanged. A focal enhancing lesion is seen involving the right superior cerebellum, anteriorly. This is consist ent with a brain metastasis. It is unchanged from the previous study. There is no significant surroun ding edema or associated mass effect. No new enhancing lesion is seen. There is no MRI evidence of acute ischemia/infarction. No extra-axia l fluid collection is noted. Moderate to severe mucosal thickening in seen scattered throughout the paranasal sinuses. There is a small left mastoid effusion. A minimal right mastoid effusion is noted. Normal flow voids are seen wi thin the major vascular structures surrounding the brain parenchyma. IMPRESSION: Stable MRI appearance of the 8mm metastasis within the right cerebellar hemisphere. No ne w metastasis is seen. Electronically signed by: Oj Craig MD (12/18/2020 12:48 PM) [id number]
== END ==
LOC: MRI 09:24
PROVIDERS: ATTEND Internal Medicine Hematology & Oncology
DX: C34.92 Malignant neoplasm of unspecified part of left bronchus or lung (principal); R91.1 Solitary pulmonary nodule
CPT/HCPCS: 70553; 71260; 74177; A9575; Q9966; Q9967

== ENCOUNTER → 2021-04-29 | Outpatient (CLI) | payer MEDICARE ==
[2019-04-18 11:35] VITALS: BP 115/58
[~2021-04-29] MED LIST changes: -CONTRAST GIVEN. MC PRN
[2021-04-29 10:29] LABS: GFR 74.3
--- NOTE | 2021-04-29 14:55 | RAD ---
MRI of the Brain without and with Contrast 04/29/2021 Clinical History: Lung cancer with brain metastasis.. Technique: Unenhanced T1-weighted sagittal and axial and FLAIR, T2-weighted, gradient echo and diffus ion-weighted axial images of the brain were obtained. After the intravenous administration of 15 cc o f Clariscan, enhanced T1-weighted axial, sagittal and coronal images of the brain were obtained. Findings: Comparison study is dated 12/18/2020. There is generalized parenchymal atrophy. Patchy, confluent and multiple small focal areas of abnorma lly increased signal intensity are seen within the periventricular and subcortical white matter of herve th cerebral hemispheres along with the hannah on the FLAIR and T2-weighted images. These likely reflect a combination of areas of small vessel ischemic disease and changes related to radiation and/or chem otherapy treatment. They have not significant changed. A focal enhancing lesion is seen involving the right superior cerebellar hemisphere. This measures 8 mm in greatest diameter. It is unchanged when compared to the previous examination. There is no signi ficant surrounding edema or associated mass effect. No additional enhancing lesion is seen. There is no MRI evidence of acute ischemia/infarction. No ext ra-axial fluid collection is seen. Moderate to severe mucosal thickening in seen scattered throughout the paranasal sinuses. There is a small left mastoid effusion. A minimal right mastoid effusion is s een. Normal flow voids are seen within the major vascular structures surrounding the brain parenchyma . IMPRESSION: Stable MRI appearance of the 8mm enhancing lesion within the right cerebellar hemisphere. There is no significant surrounding edema or associated mass effect. No new enhancing lesion is seen . Electronically signed by: Oj Craig MD (04/29/2021 2:52 PM) [id number]
--- NOTE | 2021-04-29 17:22 | RAD ---
EXAM: CT CHEST, ABDOMEN, AND PELVIS WITH INTRAVENOUS CONTRAST INDICATION: Lung cancer restaging COMPARISON: CT chest abdomen pelvis 12/18/2020 and other CTs including 09/13/2019 TECHNIQUE: Helical CT imaging performed of the chest, abdomen and pelvis after administration of 75 m L Omnipaque 300 contrast. Sagittal and coronal reformats were obtained. One or more of the following individualized dose reduction techniques were utilized for this examinat ion: 1. Automated exposure control 2. Adjustment of the mA and/or kV according to patient size 3. Use of iterative reconstruction technique. FINDINGS: CHEST: Thyroid gland and thoracic inlet: Normal. Heart and great vessels: Heart is normal in size. No pericardial effusion. Thoracic aorta is normal i n caliber. Mediastinum and dequan: No mediastinal or hilar lymphadenopathy. Lungs and pleura: Linear scarring in the left upper lobe site of prior malignancy is unchanged. No ev idence of recurrent mass. There is mild paraseptal and centrilobular emphysema. An 9 mm linear nodule along the minor fissure is unchanged. Several 4 to 5 mm nodular opacities in the inferior right uppe r lobe along the minor fissure also unchanged. Mild confluent opacities or atelectasis in the medial right middle lobe. Scattered linear opacities in the lower lobes. A calcified granuloma in the left l ower lobe is unchanged. No pleural effusion.. Chest wall and axillae: No axillary lymphadenopathy. Right Port-A-Cath is present with tip at the sup erior cavoatrial junction Bones: No acute osseous abnormality in the chest. ABDOMEN AND PELVIS: Liver: No focal lesions. Gallbladder/Biliary Tree: Normal. Pancreas: Normal. Spleen: There are calcified splenic granulomas. No splenomegaly. Adrenal Glands: Normal. Kidneys/Ureters/Bladder: Kidneys are normal in size and enhance symmetrically. There is a 1.1 cm hypo dense lesion in the superior right renal pole with greater than fluid density, Hounsfield units of 27 . This has increased in size from prior CT were measured 0.7 cm.. No hydronephrosis. Ureters are norm al course and caliber. Bladder is normal. Reproductive Organs: Normal. Stomach, small bowel, and colon: Stomach, small bowel, and colon are normal. Vasculature: Unchanged ectasia of the infrarenal abdominal aorta measuring 2.6 x2.7 cm. Moderate calc ified aortoiliac atherosclerosis. Lymph Nodes: No lymphadenopathy. Peritoneum and retroperitoneum: No free fluid or free air. Bones: Mild lumbar scoliosis. Minimal retrolisthesis of L1 on L2 moderate to severe disc space at L5- S1. IMPRESSION: 1. Stable posttreatment appearance of the left upper lobe. No evidence of recurrent or metastatic di sease in the chest, abdomen, or pelvis. 2. 1.1 cm hypodense lesion in the superior right renal pole with greater than simple fluid density, i ncreased in size from prior CT. This is most likely a minimally complicated cyst, however recommend c orrelation with ultrasound to confirm. 3. Unchanged infrarenal abdominal aortic ectasia. Electronically signed by: Corina Smith MD (04/29/2021 5:20 PM) [id number]
== END ==
LOC: CT 09:33
PROVIDERS: ATTEND Internal Medicine Hematology & Oncology
DX: C34.92 Malignant neoplasm of unspecified part of left bronchus or lung (principal); J43.2 Centrilobular emphysema; J84.10 Pulmonary fibrosis, unspecified; J98.4 Other disorders of lung; G31.9 Degenerative disease of nervous system, unspecified; D73.89 Other diseases of spleen; I77.811 Abdominal aortic ectasia; I70.0 Atherosclerosis of aorta; I70.8 Atherosclerosis of other arteries; M43.17 Spondylolisthesis, lumbosacral region; M41.86 Other forms of scoliosis, lumbar region; Z85.118 Personal history of other malignant neoplasm of bronchus and lung
CPT/HCPCS: 36415; 70553; 71260; 74177; 82565; 84520; A9575; Q9966; Q9967

== ENCOUNTER → 2021-05-27 | Outpatient (CLI) | payer MEDICARE ==
[2019-04-18 11:35] VITALS: BP 115/58
[~2021-05-27] MED LIST changes: -GADOTERATE 7.5 MMOL/15ML VIAL. IVP ONE; -IOHEXOL 240 MG/ML 50ML VIAL. PO ONE; -IOHEXOL 300 MG/ML 100ML VIAL. IV ONE
--- NOTE | 2021-05-28 12:57 | KCIC ---
US RENAL BILAT History: Reason: COMPLICATED CYST IN R RENAL POLE / Spl. Instructions: / History: Comparison: CT April 29, 2021 Procedure: Transabdominal ultrasound images are obtained of the kidneys and bladder. Findings: Right kidney: measures 9.5 x 4.4 x 4.1 cm. Right superior renal hypodense lesion measures 1.1 x 1.2 x 0.9 cm. No hydronephrosis. Left kidney: measures 9.4 x 4.6 x 4.3 cm. Normal cortical echotexture. Corticomedullary differentiat ion is preserved. No hydronephrosis. Urinary bladder: No urinary bladder wall thickening. Bilateral ureteral jets not identified during ti me of imaging. The IVC is normal caliber. The visualized abdominal aorta is normal caliber. IMPRESSION: 1. Hypoechoic right superior renal lesion, most likely complicated cyst, unchanged compared to prior CT. Electronically signed by: Lb Chirinos DO (05/28/2021 12:55 PM) [id number]
== END ==
LOC: KCIC US 13:55
PROVIDERS: ATTEND Internal Medicine Hematology & Oncology
DX: C34.92 Malignant neoplasm of unspecified part of left bronchus or lung (principal)
CPT/HCPCS: 76770

== ENCOUNTER → 2021-08-04 | Outpatient (CLI) | payer MEDICARE ==
[2019-04-18 11:35] VITALS: BP 115/58
[~2021-08-04] MED LIST changes: +GADOTERATE 7.5 MMOL/15ML VIAL. IVP ONE; +IOHEXOL 240 MG/ML 50ML VIAL. PO ONE; +IOHEXOL 300 MG/ML 100ML VIAL. IV ONE
--- NOTE | 2021-08-04 10:41 | KCIC ---
EXAM: Chest, abdomen and pelvis CT with intravenous contrast. HISTORY: Small cell lung cancer. TECHNIQUE: Computed tomographic images of the chest, abdomen and pelvis were obtained following the a dministration of intravenous contrast. Multiplanar reformatting was performed. *One or more of the following individualized dose reduction techniques were utilized for this examina tion: 1. Automated exposure control. 2. Adjustment of the mA and/or kV according to patient size. 3. Use of iterative reconstruction technique. COMPARISON: 04/29/2021 and 05/18/2019. FINDINGS: Chest: There is stable scarring within the left lung due to prior partial lung resection. There is mo derate to severe emphysema. There is stable bilateral peripheral predominant pleural parenchymal scar ring. There is a stable 8 mm nodule along the anterior right minor fissure, likely due to a fissural lymph node. There is a calcified granuloma within the left lower lobe. There is no infiltrate, pleura l effusion or pneumothorax. The heart is normal in size. There is a right chest wall port catheter unchanged in position. There a re nonspecific mediastinal and hilar lymph nodes and there is a stable small amount of fluid within t he pericardial recesses. The heart is normal in size. There are healed rib fractures. There are degen erative changes involving the spine. There is no suspicious osseous lesion. Abdomen and pelvis: There is a stable tiny cyst within the left hepatic lobe. There are multiple hepa tic granulomas. There is no convincing suspicious hepatic lesion. The gallbladder and pancreas are un remarkable. There are multiple splenic granulomas. There are stable ill-defined areas of hypodensity within the spleen which may be due to the timing of contrast administration. No suspicious renal lesi on is seen. There is mild renal cortical thinning. There is no hydronephrosis. There is stable 7 mm h ypodense lesion within the upper pole the right kidney. There is no appendicitis. There is no bowel obstruction. There is no abnormal bowel wall thickening. There is near aneurysmal dilatation of the abdominal aorta to a caliber of 2.9 cm. There is aortobiil iac atherosclerosis. There is also near aneurysmal dilatation of the left common iliac artery to a ca liber of 1.7 cm. No pathologically enlarged retroperitoneal or mesenteric lymph node is seen. There i s a small fat-containing left ventral abdominal wall hernia at the site of the prior suspected ostomy . The uterus is absent. The bladder is unremarkable. There are prostate calcifications. There is dege nerative change throughout the spine and both hips. There is no acute or suspicious osseous finding. There is severe foraminal stenosis primarily on the right at L5-S1. IMPRESSION: 1. Stable postoperative changes involving the left lung. 2. Pulmonary emphysema with multifocal peripheral predominant scarring and stable 8 mm suspected lymp h node within the right minor fissure. Continued attention the time of follow-up is recommended. 3. Stable subcentimeter hypodense lesion within the upper pole the right kidney, the appearance of wh ich favors a benign cyst. 4. Near aneurysmal dilatation of the aorta to a caliber of 2.9 cm. 5. Stable hypodense lesions within the spleen. The interval stability favors a benign etiology such a s cysts or hemangiomas. 6. No acute thoracic, abdominal or pelvic finding. Electronically signed by: Jaquelin Hamilton MD (08/04/2021 10:39 AM) [id number]
--- NOTE | 2021-08-04 12:03 | KCIC ---
EXAM: Brain MRI with and without contrast. HISTORY: Metastatic small cell carcinoma. TECHNIQUE: Multiplanar, multisequence magnetic resonance imaging of the brain was performed prior to and following the administration of intravenous contrast. COMPARISON: 04/29/2021 FINDINGS: There is a 7 mm elongated enhancing lesion within the superior right cerebellum, slightly l ess conspicuous compared to the most recent comparison exam. There is susceptibility effect associate d with this lesion likely due to microhemorrhage. No new suspicious enhancing lesion is seen. There i s no mass effect or midline shift. There is no hydrocephalus. There is cerebral volume loss. This is advanced for patient age. There is signal change within the ce rebral white matter, most commonly due to chronic small vessel disease. This is advanced for patient age. The orbits are unremarkable. There is opacification of the right maxillary sinus and frontal sinus. T here is also mucosal thickening involving the ethmoid sinus and right aspect of the sphenoid sinus. T here is fluid within the left mastoid air cells. There are normal flow voids within the cerebral vess els. There is no suspicious calvarial lesion. IMPRESSION: 1. 7 mm enhancing lesion within the right cerebellum, slightly less conspicuous compared to the prior studies. No new lesion is seen. 2. Stable cerebral white matter changes, most commonly due to chronic small vessel disease. This is a dvanced for patient age. The possibility of superimposed changes due to prior radiation therapy or ch emotherapy is not excluded given the patient history. 3. Cerebral volume loss, also advanced for patient age. Electronically signed by: Jaquelin Hamilton MD (08/04/2021 12:01 PM) [id number]
== END ==
LOC: KCIC CT 08:43
PROVIDERS: ATTEND Internal Medicine Hematology & Oncology
DX: C34.92 Malignant neoplasm of unspecified part of left bronchus or lung (principal); G93.89 Other specified disorders of brain; R90.82 White matter disease, unspecified; J32.2 Chronic ethmoidal sinusitis; J32.3 Chronic sphenoidal sinusitis; J43.9 Emphysema, unspecified; N28.89 Other specified disorders of kidney and ureter; D73.89 Other diseases of spleen; J84.10 Pulmonary fibrosis, unspecified; K76.89 Other specified diseases of liver; K75.3 Granulomatous hepatitis, not elsewhere classified; I70.0 Atherosclerosis of aorta; N42.89 Other specified disorders of prostate; M47.819 Spondylosis without myelopathy or radiculopathy, site unspecified; M16.0 Bilateral primary osteoarthritis of hip; M48.07 Spinal stenosis, lumbosacral region; Z98.890 Other specified postprocedural states
CPT/HCPCS: 70553; 71260; 74177; 82565; A9575; Q9966; Q9967

== ENCOUNTER → 2021-12-23 | Outpatient (CLI) | payer MEDICARE ==
[2019-04-18 11:35] VITALS: BP 115/58
[~2021-12-23] MED LIST changes: -FLUC200T4 PO; +FLUC200T6 PO
--- NOTE | 2021-12-23 12:33 | KCIC ---
EXAM: Brain MRI with and without contrast. HISTORY: Small cell lung cancer metastases. TECHNIQUE: Multiplanar, multisequence magnetic resonance imaging of the brain was performed prior to and following the administration of intravenous contrast. COMPARISON: 08/04/2021 FINDINGS: There is a stable 2 mm enhancing nodule within the superior right cerebellum. There is a fo cus of susceptibility effect and T2/FLAIR hyperintensity associated with this lesion, the former whic h is due to suspected microhemorrhage. There are also stable tiny foci of suspected chronic microhemo rrhage within the right temporal lobe. There is no associated abnormal enhancement to suggest metasta ses in this location. There is no restricted diffusion to suggest acute or subacute infarction. There is no mass effect or midline shift. There is no hydrocephalus. There is moderate ventricular enlargement due to cerebral a trophy. There is extensive signal change throughout the cerebral white matter and hannah, likely due to chronic small vessel disease or the sequela of radiation therapy or chemotherapy. There is opacification of the frontal and right maxillary sinus due to mucosal thickening and fluid. There is moderate right ethmoid and sphenoid sinus mucosal thickening. There is fluid within the left mastoid air cells. There are normal flow voids within the cerebral vessels. There is a tiny focus of encephalomalacia within the left cerebellum, likely due to chronic infarction. There is no suspiciou s calvarial lesion. IMPRESSION: 1. Stable 2 mm enhancing lesion within the superior right cerebellum with associated susceptibility e ffect likely due to microhemorrhage. No new enhancing lesion is seen. 2. Extensive scattered areas of signal change within the cerebral white matter and hannah, most commonl y due to chronic small vessel disease. The possibility of superimposed signal change due to chemother apy or radiation therapy is not excluded. 3. Paranasal sinus disease, described above. Electronically signed by: Jaquelin Hamilton MD (12/23/2021 12:30 PM) [id number]
--- NOTE | 2021-12-24 11:17 | KCIC ---
EXAM: Chest, abdomen and pelvis CT with intravenous contrast. HISTORY: Small cell lung cancer. TECHNIQUE: Computed tomographic images of the chest, abdomen and pelvis were obtained following the a dministration of intravenous contrast. Multiplanar reformatting was performed. *One or more of the following individualized dose reduction techniques were utilized for this examina tion: 1. Automated exposure control. 2. Adjustment of the mA and/or kV according to patient size. 3. Use of iterative reconstruction technique. COMPARISON: 12/05/2020. FINDINGS: Chest: There is stable scarring within the left lung due to partial lung resection. There i s moderate to severe emphysema. There is stable bilateral peripheral predominant pleural parenchymal scarring. There is a stable 8 mm nodule along the anterior right minor fissure, likely due to a fissu ral lymph node. There is a 3 mm groundglass nodular opacity within the lateral right upper lobe likel y associated with adjacent scarring, stable in appearance. There is stable bronchiectasis within the lingula. There is a partially calcified granuloma within the medial left lower lobe. There is no infi ltrate, pleural effusion or pneumothorax. The heart is normal in size. There is a right chest wall port catheter, unchanged in position. There are nonspecific mediastinal and hilar lymph nodes and there is a stable small amount of fluid within the pericardial recesses. There are healed rib fractures. There are degenerative changes involving th e spine. There is no suspicious osseous lesion. Abdomen and pelvis: There is a stable tiny cyst within the left hepatic lobe. There are multiple hepa tic granulomas. There is no suspicious hepatic lesion. The gallbladder, pancreas and stomach are unre markable. There are multiple splenic granulomas. There is a 5 mm hypodense lesion within the superior spleen, decreased compared to the prior exam. There is also a subtle examined hypodense lesion withi n the posterior spleen which is less conspicuous compared to the prior exam. There is stable slight n odular thickening of the abdomen without a discrete nodule. There is renal cortical thinning. There i s a tiny right renal cortical cyst or cortical scarring. There is no appendicitis. There is no bowel obstruction. There is no abnormal bowel wall thickening. There is near aneurysmal dilatation of the abdominal aorta to a caliber of 2.9 cm. There is aortobiil iac atherosclerosis. There is ectasia of the left common iliac artery to a caliber of 1.7 cm. There i s no lymphadenopathy. There is a small fat-containing ventral abdominal wall hernia at the site of a prior ostomy. The uterus is absent. The bladder is unremarkable. There are prostate calcifications. There is degene rative change throughout the spine and hips. There is no suspicious or acute osseous finding. There i s severe foraminal stenosis primarily along the right aspect of L5-S1. IMPRESSION: 1. Stable postoperative changes involving the left lung. There is no convincing residual malignancy o r acute pulmonary finding. 2. Moderate to severe emphysema with multifocal pleural parenchymal scarring. There is a stable 8 mm suspected right fissural lymph node and 3 mm right upper lobe groundglass opacity due to scarring. No new nodule is seen. 3. Decrease in subcentimeter hypodense lesions within the spleen. These are nonspecific. The possibil ity of treated metastases is not excluded. 4. Ectasia of the abdominal aorta to a caliber of 2.9 cm and of the common iliac artery to a caliber of 1.7 cm. 5. Stable small fat-containing hernia at the site of a prior left ventral abdominal wall ostomy. Electronically signed by: Jaquelin Hamilton MD (12/24/2021 11:15 AM) [id number]
== END ==
LOC: KCIC MRI 09:56
PROVIDERS: ATTEND Internal Medicine Hematology & Oncology
DX: J43.9 Emphysema, unspecified (principal); G93.89 Other specified disorders of brain; J32.2 Chronic ethmoidal sinusitis; J34.89 Other specified disorders of nose and nasal sinuses; I77.811 Abdominal aortic ectasia; K43.9 Ventral hernia without obstruction or gangrene; D73.89 Other diseases of spleen; J84.10 Pulmonary fibrosis, unspecified; J47.9 Bronchiectasis, uncomplicated; I70.8 Atherosclerosis of other arteries; K76.89 Other specified diseases of liver; R91.8 Other nonspecific abnormal finding of lung field; M47.819 Spondylosis without myelopathy or radiculopathy, site unspecified; M16.0 Bilateral primary osteoarthritis of hip; M48.07 Spinal stenosis, lumbosacral region
CPT/HCPCS: 70553; 71260; 74177; 82565; A9575; Q9966; Q9967